=== PATIENT | female | born 1990 | race Caucasian/White ===

== ENCOUNTER 2021-11-26 14:13 | Outpatient (RCR) | payer OTHER, SELFPAY ==
[2021-11-25 08:26] LABS: Basophils Percent Auto 0.3 % (0.2-1.2); Eosinophils Absolute Auto 0.1 K/mm3 (0-0.3); Eosinophils Percent Auto 0.8 % (0-4.4); Hematocrit 35.4 % (37.0-47.0); Hemoglobin 11.9 g/dL (12.0-15.0); Immature Granulocyte Absolute 0.04 K/mm3 (0.00-0.031); Immature Granulocyte Percent A 0.4 % (0-0.5); Lymphocytes Absolute Auto 2.18 K/mm3 (0.9-3.2); Lymphocytes Percent Auto 22.2 % (18.3-44.2); Mean Corpuscular HGB Conc 33.6 g/dl (32-36); Mean Corpuscular Hemoglobin 31.2 pg (26-34); Mean Corpuscular Volume 92.7 fl (80-100); Mean Platelet Volume 9.2 fl (7.4-10.4); Monocytes Absolute Auto 0.8 K/mm3 (0.1-0.6); Monocytes Percent Auto 8.2 % (2.6-8.5); Neutrophils Absolute Auto 6.7 K/mm3 (1.3-6.7); Neutrophils Percent Auto 68.1 % (45.5-73.1); Platelet Count Result 214 k/mm3 (150-375); Red Blood Count 3.82 M/mm3 (4.2-5.4); Red Cell Distribution Width 12.8 % (11.5-14.5); White Blood Count 9.8 K/mm3 (4.5-10.0)
[2021-11-25 08:41] LABS: Glucose 1 Hour PP 50gm Dose 98 mg/dL
[2021-11-26] MEDS: RHO(D) IMMUNE GLOBULIN 300 MCG/2 ML SYRINGE IM (11:15)
== END 2021-11-26 15:00 | disposition home or self-care (01) ==
LOC: ANHLAB 14:13
PROVIDERS: PCP Family Medicine; Visit Provider Student in an Organized Health Care Education/Training Program
DX: Z29.13 Encounter for prophylactic Rho(D) immune globulin (principal)
CPT/HCPCS: 36415; 82947; 85025; 85461; 90384; 96372; J2790

== ENCOUNTER 2022-02-09 09:21 | Inpatient (IN) | payer OTHER, SELFPAY ==
[2022-02-09] VITALS (8 sets, daily range): BP systolic 120–127; BP diastolic 72–91; PULSE 62–89; BMI 29.7
--- NOTE | 2022-02-09 12:38 | PM.IMHP ---
H&P: HPI History of Present Illness Date/Time: 02/09/22 12:38 Chief Complaint: Patient is a 31-year-old LMP 05/05/2021 currently 40 weeks gestation with IKE 02/09/2022. Patient is dated by LMP consistent with ultrasound on 07/07/2021 at 8 weeks gestation. Patient presented to labor and delivery today for surveillance. A limited US was performed and oligohydramnios was noted with MARCELINO of 4 cm. Decision was made to admit patient to labor and delivery for induction of labor. In general, patient doing well. Denies any vaginal bleeding, leakage of fluid, or contractions. Reports good movement. Review of Systems Review of Systems: All systems reviewed & are unremarkable except as noted in HPI and below Constitutional: Constitutional: Reports as per HPI and Reports no additional constitutional complaints Eyes: Eyes: Reports as per HPI and Reports no additional eye complaints ENT: Reports system reviewed and no additional complaints, except as documented and Reports as per HPI Cardiovascular: Cardiovascular: Reports as per HPI and Reports no additional cardiovascular complaints Respiratory: Respiratory: Reports as per HPI and Reports no additional respiratory complaints Gastrointestinal: Gastrointestinal: Reports as per HPI and Reports no additional gastrointestinal complaints Genitourinary: Genitourinary: Reports no additional female genitourinary complaints and Reports as per HPI Musculoskeletal: Musculoskeletal: Reports no additional musculoskeletal complaints and Reports as per HPI Integumentary/Breasts: Skin/Breast: Reports system reviewed and no additional complaints, except as docu and Reports as per HPI Neurologic: Reports system reviewed and no additional complaints, except as documented and Reports as per HPI Psychiatric: Psychiatric: Reports no additional psychiatric complaints and Reports as per HPI Endocrine: Endocrine: Reports no additional endocrine complaints and Reports as per HPI Hematologic/Lymphatic: Hematologic/Lymphatic: Reports no additional hematologic/lymphatic complaints and Reports as per HPI Allergic/Immunologic: Allergic/Immunologic: Reports no additional allergic/immunologic complaints and Reports as per HPI PMF Past Medical History Medical History Amputation of right great toe Cardiac disorder Depression Surgical History Surgical History H/O cardiac radiofrequency ablation [place] teeth removed Family History Family History Grandparent Family history of hypercholesterolemia Hypertension Malignant neoplasm of prostate Father Hypertension Mother Hypertension Other Acute myocardial infarction Family history of cardiac disorder Family history of malignant neoplasm of urinary bladder Family history of pancreatic cancer Social History Social History Smoking status: Never smoker Second hand tobacco smoke exposure: No Alcohol intake: former Alcohol use details: Not since Substance use: never Spiritual care concerns: No Meds Home Medications and Allergies Home Medications Medication Instructions Recorded Confirmed Type pyridoxine (vitamin B6) 25 mg 25 mg PO QHS 07/25/21 02/09/22 History tablet cholecalciferol (vitamin D3) 50 50 mcg PO DAILY 09/26/21 02/09/22 History mcg (2,000 unit) capsule prenat.vits,jackie,nrd-[id number] 1 tablet PO HS 01/13/22 01/26/22 History Allergies Allergy/AdvReac Type Severity Reaction Status Date / Time codeine Allergy Unknown Unknown Verified 02/08/22 12:37 TRAMADOL HCL Allergy Unknown Unknown Uncoded 01/17/22 15:18 Vital Signs Vital Signs - 24 hr 02/09/22 11:52 02/09/22 12:00 02/09/22 12:15 Pulse Rate 66 69 89 Blood Pressure 127/85 125/86 127/91 H Exam Const:
[2022-02-09] MEDS: DINOPROSTONE 10 MG VAG INSERT VAGINAL (12:49)
[2022-02-09 13:10] LABS: Basophils Percent Auto 0.3 % (0.2-1.2); Eosinophils Absolute Auto 0.1 K/mm3 (0-0.3); Eosinophils Percent Auto 0.5 % (0-4.4); Hematocrit 37.6 % (37.0-47.0); Immature Granulocyte Absolute 0.06 K/mm3 (0.00-0.031); Immature Granulocyte Percent A 0.5 % (0-0.5); Lymphocytes Absolute Auto 2.37 K/mm3 (0.9-3.2); Lymphocytes Percent Auto 21.4 % (18.3-44.2); Mean Corpuscular HGB Conc 34.6 g/dl (32-36); Mean Corpuscular Hemoglobin 30.9 pg (26-34); Mean Corpuscular Volume 89.3 fl (80-100); Monocytes Absolute Auto 0.7 K/mm3 (0.1-0.6); Monocytes Percent Auto 6.3 % (2.6-8.5); Neutrophils Absolute Auto 7.8 K/mm3 (1.3-6.7); Platelet Count Result 259 k/mm3 (150-375); Red Blood Count 4.21 M/mm3 (4.2-5.4); Red Cell Distribution Width 13.2 % (11.5-14.5); White Blood Count 11.1 K/mm3 (4.5-10.0)
--- NOTE | 2022-02-09 13:21 | LDADM ---
This patient, Kiara Barber, was admitted to Labor/Delivery/Recovery 108 on 02/09/22 at 09:21. Plans for labor, pain management and were discussed with patient. Patient/family oriented to hospital policies and general routines including ID bracelet, bed and alarms, visiting hours, pain management, procedures, bathroom and other care routines, personal items, smoking policy, room service/diet and guest tray routines, security routines, and visiting hours. Patient/Family are encouraged to report perceived risks to care and to ask questions if they do not understand what they are told or what they should do. See OBIX for further documentation.
[2022-02-09] MEDS: LACTATED RINGERS 1,000 ML 125 ML IV CONT (15:58)
--- NOTE | 2022-02-09 16:43 | WPDHPUPDATE1 ---
History and Physical Update Update Date/Time: 02/09/22 16:43 History and Physical has been reviewed, including an updated exam of the patient. There are NO changes in the patient's condition. Risks, benefits, and alternatives have been discussed and questions answered. Patient agrees to proceed with procedure.
--- NOTE | 2022-02-09 17:41 | WPDANESEPP ---
Anes - Eval Pre Procedure Procedure: Labor epidural Date/Time: 02/09/22 17:41 Surgeon: deric Preop Diagnosis: Abd pain with contractions Pre Op Diagnosis: Induction of Labor Patient Data Age: 31 Gender: F Height: 1.68 m Weight: 83.5 kg Last Vital Signs Pulse 64 02/09/22 14:30 BP 122/75 02/09/22 14:30 Allergies Allergy/AdvReac Type Severity Reaction Status Date / Time codeine Allergy Unknown Unknown Verified 02/08/22 12:37 TRAMADOL HCL Allergy Unknown Unknown Uncoded 01/17/22 15:18 Home Medications Medication Instructions Recorded Confirmed Type pyridoxine (vitamin B6) 25 mg 25 mg PO QHS 07/25/21 02/09/22 History tablet cholecalciferol (vitamin D3) 50 50 mcg PO DAILY 09/26/21 02/09/22 History mcg (2,000 unit) capsule prenat.vits,jackie,vkb-njww-rdort 1 tablet PO HS 01/13/22 01/26/22 History Laboratory Tests 02/09/22 02/09/22 02/09/22 12:52 12:52 12:52 WBC 11.1 K/mm3 H K/mm3 (4.5-10.0) RBC 4.21 M/mm3 M/mm3 (4.2-5.4) Hgb 13.0 g/dL g/dL (12.0-15.0) Hct 37.6 % % (37.0-47.0) MCV 89.3 fl fl (80-100) MCH 30.9 pg pg (26-34) MCHC 34.6 g/dl g/dl (32-36) RDW 13.2 % % (11.5-14.5) Plt Count 259 k/mm3 k/mm3 (150-375) MPV 10.0 fl fl (7.4-10.4) Immature Gran % (Auto) 0.5 % % (0-0.5) Neut % (Auto) 71.0 % % (45.5-73.1) Lymph % (Auto) 21.4 % % (18.3-44.2) [place] % (Auto) 6.3 % % (2.6-8.5) Eos % (Auto) 0.5 % % (0-4.4) Baso % (Auto) 0.3 % % (0.2-1.2) Lymph # (Auto) 2.37 K/mm3 K/mm3 (0.9-3.2) [place] # (Auto) 0.7 K/mm3 H K/mm3 (0.1-0.6) Eos # (Auto) 0.1 K/mm3 K/mm3 (0-0.3) Baso # (Auto) 0.0 K/mm3 K/mm3 (0.0-0.1) Abs Immat Gran (auto) 0.06 K/mm3 H K/mm3 (0.00-0.031) Absolute Neuts (auto) 7.8 K/mm3 H K/mm3 (1.3-6.7) Absolute Nucleated RBC 0.0 K/mm3 K/mm3 (0.0-0.012) Nucleated RBC % 0.0 % % (0.0-0.2) RPR Pending Blood Type A Negative Antibody Screen Positive Antibody Identification Passive Due to RH Imm Glob Antigen Identification Cancelled RICK, IgG Interpret Not Performed RICK, Poly Interpret Negative RICK, Complement Interp Not Performed Patient hx anesthesia problems: none Family hx anesthesia problems: none Results Review: All pre-operative results and documents have been reviewed as part of the pre-operative evaluation. [facility] Past Medical History Medical History (Updated 02/09/22 @ 17:43 by Chong Peña CRNA) Amputation of right great toe Anxiety Cardiac disorder Depression Overweight (BMI 25.0-29.9) and not yet delivered Surgical History Surgical History (Updated 02/09/22 @ 17:43 by Chong Peña CRNA) H/O cardiac radiofrequency ablation History of atrioventricular richardson ablation [place] teeth removed Family History Family History Grandparent Family history of hypercholesterolemia Hypertension Malignant neoplasm of prostate Father Hypertension Mother Hypertension Other Acute myocardial infarction Family history of cardiac disorder Family history of malignant neoplasm of urinary bladder Family history of pancreatic cancer Social History Social History Smoking status: Never smoker Second hand tobacco smoke exposure: No Alcohol intake: former Alcohol use details: Not since Substance use: never Spiritual care concerns: No Exam Day of Procedure 02/09/22 17:41 Patient weight: overweight Airway: Mallampati scale class II Neurological: alert and oriented
[2022-02-10] VITALS (154 sets, daily range): BP systolic 78–149; BP diastolic 52–104; PULSE 52–117; RESP 16–18; TEMP 36.4–37.2; O2SAT 92–100
[2022-02-10] MEDS: OXYTOCIN 30 UNITS/NS 500 ML 30 UNITS/500 ML BAG IV CONT (02:19)
[2022-02-10] MEDS: LACTATED RINGERS 1,000 ML 125 ML IV CONT ×2 (04:40→05:48)
--- NOTE | 2022-02-10 10:01 | P.PNOB_ITS ---
Pain Control Date/time seen: 02/10/22 10:01 Patient doing well. Comfortable after epidural replacement. SVE /-1. AROM performed, clear fluid noted. EFM currently category 1. [place] shows contractions q2-3 mins. Continue pitocin. Continuous EFM and toco. Anticipate .
[2022-02-10] MEDS: OXYTOCIN 30 UNITS/NS 500 ML 30 UNITS/500 ML BAG 125 UNITS IV CONT (13:58)
--- NOTE | 2022-02-10 14:17 | PM.OBPRVD ---
OB - Delivery Note Procedure Delivery date: 02/10/22 Procedure: Patient is a 31-year-old now who presented to labor and delivery on the morning of 02/09/2022 for surveillance at 40 weeks gestation. Oligohydramnios was noted on ultrasound and decision was made to proceed with induction of labor. Patient was admitted to labor and delivery where induction of labor was started with Cervidil. Initial cervical exam was approximately 1 cm dilated. Cervidil remained in place for approximately 12 hours after which it was removed. Pitocin was started for labor augmentation. Patient made progressive cervical change. She became uncomfortable and requested an epidural for pain management which was placed without difficulty. Patient continued to make cervical change. At 9:45 a.m., artificial rupture membranes was performed. Clear amniotic fluid was noted. Cervical exam was approximately 9 cm dilated at that time. Patient progressed to fully dilated at 11:32 a.m. Patient was encouraged to push and found to be pushing well. She was prepped and draped for delivery. At 1:37 p.m., patient delivered infant head atraumatically and without difficulty in FLAVIA presentation. A compound presentation was noted as a hand delivered along side of face. Occiput restituted to maternal right side. With subsequent push, the 's neck, shoulders, and rest of body delivered without difficulty. Terminal meconium was noted. Infant was crying spontaneously. Infant's nose and mouth were suctioned with bulb suction. Infant was placed on maternal abdomen where care was assumed by awaiting nursing staff. Delayed cord clamping was performed for approximately 60 seconds. Cord was clamped and cut. A segment of cord was collected for cord gases. Cord blood was collected. The placenta was delivered spontaneously and intact. Uterine fundus was noted to be firm with massage. Straight catheterization was performed with return of approximately 50 cc of urine. On inspection, a second-degree perineal laceration was noted. Approximately 15 cc of 1% lidocaine was administered for local analgesia. The laceration was repaired with 2-0 and 3-0 Vicryl in the usual fashion. Excellent hemostasis was noted. Patient was cleansed and dried. was a live-born male infant, Apgars 8 and 9, weighing 6 lbs. 14 oz. Both mother and baby doing well at end of delivery. Events: Oligohydramnios Induction method: Per Cervidil Protocol Delivery augmentation: Rupture of Membranes and Pitocin Delivery monitor: External FHT and External Uterine Route of delivery: Laceration Description: Perineal - 2nd Degree Delivery repair: vicryl (2-0 and 3-0 ) Specimen: Yes (cord blood and cord gases) Quantitative Blood Loss (ml): 150 Anesthesia type: Epidural Disposition: Floor Complications: No immediate complications [place] Baby Date of : 02/10/22 Time of : 13:37 Weeks of gestation at delivery: 40 (40.1) Infant gender: Male Weight (pounds): 6 Weight (ounces): 14 presentation: compound ( hand delivered alongside of face) position: Right Occiput Anterior Placenta delivery description: Spontaneous Cord Vessel Description: 3 Vessels and Delayed Cord Clamping (x60s) score one minute: 8 score five minutes: 9 AMG Delivery Billing Delivery Delivery: Delivery Charge
[2022-02-10] MEDS: IBUPROFEN 600 MG TABLET PO (14:57)
[2022-02-10] MEDS: WITCH HAZEL 40 PADS 1 PAD TOPICAL (14:58)
[2022-02-10] MEDS: BENZOCAINE 20% AER SPR (*SP) 56 GM CAN 1 SPRAY TOPICAL (14:58)
--- NOTE | 2022-02-10 16:37 | OBPPTRN ---
Patient transferred to post room # 284 via wheelchair. Support person present. Oriented to unit, room, information board, rooming in, admission packet and security measures. Patient verbalizes understanding.
[2022-02-11] MEDS: IBUPROFEN 600 MG TABLET PO ×4 (00:29→22:32)
[2022-02-11 00:30] VITALS: BP 143/96; PULSE 80; RESP 16; TEMP 36.8; O2SAT 98
[2022-02-11 04:30] VITALS: BP 118/69; PULSE 61; RESP 14; TEMP 36.5; O2SAT 98
[2022-02-11 05:38] LABS: Hematocrit 29.6 % (37.0-47.0); Hemoglobin 10.4 g/dL (12.0-15.0)
[2022-02-11 06:40] VITALS: BP 128/75; PULSE 64; RESP 18; TEMP 36.4
--- NOTE | 2022-02-11 08:21 | PM.OBPNVD ---
OB - PN: Subj Subjective Date/time seen: 02/11/22 08:21 Patient doing well this AM. Mild cramping and pain reasonably controlled with medication. Minimal lochia. Ambulating without difficulty. Voiding well. OB - PN: Obj Data Labs CBC & Chem 7: 02/11/22 05:16 Labs: Laboratory Results - last 24 hr 02/11/22 05:16 Hgb 10.4 L Hct 29.6 L OB - PN A/P Assessment and Plan (1) Normal spontaneous vaginal delivery: Code(s): O80 - Encounter for full-term uncomplicated delivery Status: Acute Assessment and Plan: PPD#1 doing well continue routine care anticipate dc home tomorrow Time Spent With Patient Time: Total time spent is greater than 50% in coordination of care (as documented) at patient's floor/unit and/or counseling patient: Review of Systems Review of Systems: All systems reviewed & are unremarkable except as noted in HPI and below Exam Const: General: cooperative, healthy appearing, comfortable and no acute distress GI: Inspection: non-distended GI Palp: Yes Soft to palpation and No Tenderness to palpation present (GI) Other: fundus firm below umbilicus Extrem: Right lower extremity: no edema Left lower extremity: no edema Other: no calf tenderness
[2022-02-11] MEDS: DOCUSATE SODIUM 100 MG CAPSULE PO ×2 (10:34→16:23)
[2022-02-11] MEDS: MULTIVIT/MIN/PREN/FOL AC/IRON TABLET 1 TAB PO (10:34)
--- NOTE | 2022-02-11 11:17 | WPDANLDPN2 ---
Anes-Prog Note L&D Date/Time: 02/11/22 11:17 Comfortable throughout: labor and delivery Neuraxial method: epidural Epidural/Spinal procedure site: clean & non-tender Neuro status: Neuro function grossly intact. Cardiovascular status: normal Respiratory status: normal Airway patency: baseline Mental status: baseline Post-Op hydration status: normal Vital Signs: Last Vital Signs Temp 36.4 C 02/11/22 06:40 Pulse 64 02/11/22 06:40 Resp 18 02/11/22 06:40 BP 128/75 02/11/22 06:40 Pulse Ox 98 02/11/22 04:30 O2 Del Method Room Air 02/11/22 06:40 Pain score (VAS): 10 I/O: Intake & Output 02/10/22 02/11/22 02/11/22 23:59 07:59 15:59 Intake Total 350 Output Total 185 Balance 165 Post-procedural complaints: none Patient feedback: Patient satisfied with anesthetic care.
[2022-02-11 19:10] VITALS: BP 134/88; PULSE 71; RESP 18; TEMP 36.4
[2022-02-12] MEDS: IBUPROFEN 600 MG TABLET PO ×2 (05:03→13:00)
[2022-02-12] MEDS: MULTIVIT/MIN/PREN/FOL AC/IRON TABLET 1 TAB PO (07:19)
[2022-02-12 07:45] VITALS: BP 121/68; PULSE 59; RESP 16; TEMP 36.6; O2SAT 99
[2022-02-12 08:00] LABS: Rapid Plasma Reagin Non-Reactive (NonReactive)
--- NOTE | 2022-02-12 09:13 | PM.OBPNVD ---
OB - PN: Subj Subjective Date/time seen: 02/12/22 09:13 Patient doing well. Minimal cramping/pain well controlled with medication. Minimal lochia. Ambulating without difficulty. Voiding well. OB - PN: Obj Data Labs CBC & Chem 7: 02/11/22 05:16 Labs: Laboratory Results - last 24 hr 02/09/22 12:52 RPR Non-reactive OB - PN A/P Assessment and Plan (1) Normal spontaneous vaginal delivery: Code(s): O80 - Encounter for full-term uncomplicated delivery Status: Acute Assessment and Plan: PPD#2 doing well continue routine care dc home in stable condition emergency precautions reviewed f/u in office in 4-6 weeks for visit Time Spent With Patient Time: Total time spent is greater than 50% in coordination of care (as documented) at patient's floor/unit and/or counseling patient: Review of Systems Review of Systems: All systems reviewed & are unremarkable except as noted in HPI and below Exam Const: General: cooperative, healthy appearing, comfortable and no acute distress GI: Inspection: non-distended GI Palp: Yes Soft to palpation and No Tenderness to palpation present (GI) Other: fundus firm below umbilicus Extrem: Right lower extremity: no edema Left lower extremity: no edema Other: no calf tenderness
--- NOTE | 2022-02-12 09:16 | PM.OBDSVD ---
DS: Admitting Diagnosis Discharge Date 02/12/22 Admitting Diagnosis IUP at 40w gestation Oligohydramnios OB - DS: Summary OB Procedures : None OB Procedures Intrapartum: Spontaneous Vag Delivery OB Procedures: : None Time Spent with Patient Time attestation: Total time spent providing and/or coordinating discharge services: DS: Data Data Completed and Pending Pending studies at discharge: Pending at discharge 02/10/22 13:40 Surgical [PTH] Routine Labs on day of discharge: Labs from last 24 hours 02/09/22 12:52 RPR Non-reactive Discharge Plan Discharge Attending physician on discharge: Ashley Obrien Discharging Clinician: Ashley Obrien Anticipated Discharge Date/Time: 02/12/22 09:16 Patient Disposition: Home, Self-Care Activity: as tolerated and pelvic rest Diet: regular Discharge Instructions: Call office ([phone]) to schedule a visit in 4-6 weeks. You may take Ibuprofen 600mg every 6 hours as needed for pain. Pain medication may make you constipated. It may be helpful to take an [id number] stool softener, such as Colace and/or Senokot, along with the pain medication to help lessen constipation. Call office or go to ED for pain not controlled with medication, headache, chest pain, shortness of breath, fever, chills, persistent nausea or vomiting, severe abdominal pain, heavy vaginal bleeding >2 pads/hour, foul vaginal discharge or odor, or problems with your breasts. Patient Instructions: Antibiotic Form Stand Alone Forms: General Discharge Information Follow-up/Referrals: Ashley Obrien MD [Physician] - Discharge Medications: Continued #2 Tablet 1 tablet PO HS Discontinued pyridoxine (vitamin B6) 25 mg tablet 25 mg PO QHS cholecalciferol (vitamin D3) 50 mcg (2,000 unit) capsule 50 mcg PO DAILY Date of admission: 02/09/22 09:21 Primary Care Provider: UNKNOWN,DOCTOR Admitting Provider: Ashley Obrien Attending physician on admission: Ashley Obrien Condition: Stable
--- NOTE | 2022-02-12 10:13 | PC.NURSE ---
[id number] Introductions were made to the father of the baby since mother is in the shower. Resources reviewed for inpatient and outpatient services using a resource guide and mom/baby guide. Father of baby voiced understanding of information and will call if there is a request for assistance. Primary RN is present in the room.
--- NOTE | 2022-02-12 14:33 | PC.NURSE ---
Addendum entered by Sanna Drake RN 02/12/22 14:47: During the assessment between the time of there was a discussion regarding positioning, latch and how that can make a difference in improving the latch with her infant's recessed chin. Original Note: Consulted with patient to assess needs related to . Mother led conversation with her experience with feeding baby so far. Mother works well with her with encouragement. Infant is sleepy after his circumcision and medication. Reviewed working with infant with massage touch, breast, nipples and how to protect the nipples with an optimal deep latch, good positioning, hand expression, and good hand washing. Encouraged understanding the benefits of skin to skin, responding to feeding cues, frequencies of feeding 8-12 times in 24 hours (approximately 2-3 hours), supply/demand, milk production, intake/output feeding sheet and signs of adequate intake encouraging swallowing at the breast. Reviewed positioning and alignment, supporting breast, off-centered (asymmetrical latch) and leading with the chin with big open wide gape, then infant went back to sleep. Mother demonstrated understanding of how to massage touch, talking, changing positioning, and stimulating to wake to breastfeed. Infant is sleepy and reluctant with no sustainable efforts at this time. Mother has been pumping as needed. We discussed the risk/benefits/use, and care of the nipple shield and the electric pump. Resources used to facilitate learning were used from the visual handout, tool, mom and baby guide. Mother voiced understanding of the education shared, calling for assistance if the does not latch or if there is discomfort with . Reported to the primary RN. [id number] Breast pump provided prior to shift due to mother being given a nipple shield to use for . Instructions given on cleaning, care, usage, that there should be no pain, pumping schedule for milk production, collection, and storage of human milk. Patient was assessed for correct placement, flange size, to pump for comfort and nipple stretching/stimulation for adequate milk production every 3 hours (8 times in 24 hours). Mother voiced understanding of the education shared along with mom and baby guide for additional resource information. Encouraged mother to stay through a feeding to work with infant on latching optimally before going home. Mother states she feels confident to go home with her without the assistance of support at this time to visualize if infant can latch effectively without the nipple shield to her everted nipples. Mother verbalizes understanding of pumping if doesn't latch, states she learned a lot with the earlier education and attempt, and has a follow up appointment tomorrow. Patient state she will ask for help tomorrow if needed. Primary RN is present for the discussion.
[2022-02-13 09:48] VITALS: BP 122/76; PULSE 73; RESP 16; TEMP 36.6; O2SAT 98
== END 2022-02-12 13:12 | disposition home or self-care (01) | DRG 807 ==
LOC: ANHLDR 11:37 → ANHOB2 02-10 16:49
PROVIDERS: Admitting Provider Student in an Organized Health Care Education/Training Program; Visit Provider Student in an Organized Health Care Education/Training Program
DX: O41.03X0 Oligohydramnios, third trimester, not applicable or unspecified (principal); Z37.0 Single live birth; O32.6XX0 Maternal care for compound presentation, not applicable or unspecified; O70.1 Second degree perineal laceration during delivery; O76 Abnormality in fetal heart rate and rhythm complicating labor and delivery; Z3A.40 40 weeks gestation of pregnancy
CPT/HCPCS: 36415; 59025; 76815; 85014; 85018; 85025; 86592; 86850; 86880; 86900; 86901; 86902; 88307; A9270; J2590; J2795; J7120

== ENCOUNTER 2022-02-09 09:21 | Outpatient (RCR) | payer OTHER, SELFPAY ==
--- NOTE | ~2022-02-09 | US_ITS ---
EXAMINATION: US OB limited DATE: 02/09/2022 10:31 INDICATION: Amniotic fluid index assessment, third trimester, post dates TECHNIQUE: Real-time ultrasound of the pelvis was performed. The interpreting radiologist was not pre sent for the study. COMPARISON: None. FINDINGS: There is a single living fetus in vertex presentation. The placenta is anterior. card iac activity and movement are noted. heart rate is 139 beats per minute (bpm). The amniot ic fluid index is 4.4 cm which is low (normal range: 7.1 cm to 21.4 cm). IMPRESSION: 1. Single living fetus in vertex presentation. 2. Oligohydramnios. Reviewed, dictated and finalized at location A.
[2022-02-09 10:12] VITALS: BP 122/84; PULSE 84
== END 2022-03-21 10:08 | disposition home or self-care (01) ==
LOC: ANHOBOP 09:21
PROVIDERS: Visit Provider Student in an Organized Health Care Education/Training Program
DX: O48.0 Post-term pregnancy (principal); Z3A.40 40 weeks gestation of pregnancy
CPT/HCPCS: 59025; 76815

== ENCOUNTER 2022-02-13 10:26 | Outpatient (CLI) | payer OTHER, SELFPAY ==
--- NOTE | 2022-02-13 11:19 | PC.NURSE ---
In- 1026 Out- 1106 Reason for visit: Latch issues History: Patient medical history includes Amputation of right great toe, cardiac disorder, and depression. Induction of labor with Cervidil, Pitocin, then AROM was planned at 40 weeks gestation after US resulted with Oligohydramnios. Epidural delivery of male on 02/10/22 with QBL of 150, FLAVIA with hand along the side of the 's face, and delayed cord clamping per delivery note. Prior to meeting RN patient had been given a nipple shield and a pump. RN did not have the opportunity assess a latch with or without the nipple shield but mother desires to go home and is confident to practice latching infant without the nipple shield, pump and feed her infant if needed. Infant History: EGA of 40 weeks. RN met infant on 02/12 after circumcision and pain medication. RN visualized a sleepy and reluctant infant with no latch assessment in the hospital before mother went home. Feedings were charted as , nipple shield being used, and syringe feeding pumped human milk. Mother went home confident to be able to feed her . Observations: Mother attempts to latch infant and the latch is shallow at times. Mother demonstrates good positioning with 's body close to hers with ear, shoulder, and hip aligned. Infant demonstrated big, open, wide gape. With a bit of hesitation infant begins to close his mouth as mother brings infant to the breast. RN encouraged mother of her abilities to bring infant quickly to the breast to achieve a mouthful of breast for her son to have an optimal latch. At times, attempts to pull back and latch shallow. Reviewed detaching if the latch is shallow and patiently wait for the optimal open. Infant latched to the right breast for 13 minutes, then the left breast for 10 using the cross cradle positioning. Nipple was not misshaped and mother denied pain. Mother encouraged to latch infant deeply each feeding and educated on how to watch and listen for good swallowing at the breast. Mother verbalized understanding of the rocking motion and deep swallows. Suck/ swallow ratios are 1:1 and 2:1. Mother voiced confidence to work with her at home, when, and how to reach out for assistance if she has any question, concerns, or when to call ICP. weight: 02/10 1337 3130 g Lowest weight: 02/11 2340 2958 g Last weight: 02/13 2935 g Pre-feed weight: 2935 Post-feed weight: 2950 Plan of Care: Mother is confident to breastfeed her and states her breast are filling. Day 3 post delivery is today at 1337. Reviewed how to prevent and the treatment of engorgement. Follow up plans: There is a plan to follow up at Dr. Holly's office this week. Mother will contact RN or ICP if there are any concerns or questions.
== END 2022-02-13 10:27 | disposition home or self-care (01) ==
LOC: ANHOBOP 10:26
PROVIDERS: Visit Provider Pediatrics
DX: Z39.1 Encounter for care and examination of lactating mother (principal)
CPT/HCPCS: 99211; G0463

== ENCOUNTER 2024-02-27 15:01 | Outpatient (CLI) | payer OTHER, SELFPAY ==
--- NOTE | ~2024-02-27 | US_ITS ---
EXAMINATION: US OB <= 14 weeks fetus DATE: 02/27/2024 15:18 INDICATION: Amenorrhea TECHNIQUE: Real-time pelvic ultrasound utilizing transabdominal probe was performed. The gigi potts radiologist was not present for the study. COMPARISON: None. FINDINGS: The uterus measures 10.9 x 7.4 x 5.3 cm. There is an intrauterine gestational sac. A yolk sac and fe selena pole are identified. The crown rump length measures 2.5 cm, which correlates with an estimated ge stational age of 9 weeks and 1 days. heart motion is identified measuring 176 beats per minute (bpm) by M-mode Doppler. The placenta appears to be developing posteriorly. The bilateral ovaries are not visualized. There is no free fluid in the pelvis. IMPRESSION: 1. Single living fetus with heart rate of 176 bpm. 2. Gestational age by ultrasound of 9 weeks 1 day(s) +/- 6 day(s) with ultrasound estimated date of delivery (IKE) of 09/30/2024. Reviewed, dictated and finalized at location A. IMPRESSION: 1. Single living fetus with heart rate of 176 bpm. 2. Gestational age by ultrasound of 9 weeks 1 day(s) +/- 6 day(s) with ultraso und estimated date of delivery (IKE) of 09/30/2024.
== END 2024-02-27 15:02 | disposition home or self-care (01) ==
LOC: GOSHIMG 15:03
PROVIDERS: PCP Nurse Practitioner Obstetrics & Gynecology; Visit Provider Nurse Practitioner Obstetrics & Gynecology
DX: N91.2 Amenorrhea, unspecified (principal); Z3A.09 9 weeks gestation of pregnancy
CPT/HCPCS: 76801

== ENCOUNTER 2024-06-18 11:23 | Outpatient (CLI) | payer OTHER, SELFPAY ==
[2024-06-18 12:44] LABS: Basophils Percent Auto 0.4 % (0.2-1.2); Eosinophils Absolute Auto 0.1 K/mm3 (0-0.3); Eosinophils Percent Auto 0.8 % (0-4.4); Hematocrit 33.8 % (37.0-47.0); Hemoglobin 11.5 g/dL (12.0-15.0); Immature Granulocyte Absolute 0.04 K/mm3 (0.00-0.031); Immature Granulocyte Percent A 0.5 % (0-0.5); Lymphocytes Absolute Auto 1.63 K/mm3 (0.9-3.2); Lymphocytes Percent Auto 21.2 % (18.3-44.2); Mean Corpuscular Hemoglobin 31.1 pg (26-34); Mean Corpuscular Volume 91.4 fl (80-100); Mean Platelet Volume 9.1 fl (7.4-10.4); Monocytes Absolute Auto 0.6 K/mm3 (0.1-0.6); Monocytes Percent Auto 7.9 % (2.6-8.5); Neutrophils Absolute Auto 5.3 K/mm3 (1.3-6.7); Neutrophils Percent Auto 69.2 % (45.5-73.1); Platelet Count Result 214 k/mm3 (150-375); Red Cell Distribution Width 13.2 % (11.5-14.5); White Blood Count 7.7 K/mm3 (4.5-10.0)
[2024-06-18 12:54] LABS: Glucose 1 Hour PP 50gm Dose 82 mg/dL
== END 2024-06-18 11:24 | disposition home or self-care (01) ==
LOC: ANHLAB 11:24
PROVIDERS: PCP Nurse Practitioner Obstetrics & Gynecology; Visit Provider Nurse Practitioner Obstetrics & Gynecology
DX: Z34.90 Encounter for supervision of normal pregnancy, unspecified, unspecified trimester (principal); Z3A.00 Weeks of gestation of pregnancy not specified
CPT/HCPCS: 36415; 82947; 85025

== ENCOUNTER 2024-07-09 08:30 | Outpatient (RCR) | payer OTHER, SELFPAY ==
[2024-07-10] MEDS: RHO(D) IMMUNE GLOBULIN 300 MCG/2 ML SYRINGE IM (16:45)
--- OUTSIDE RECORDS SUMMARY | 2024-07-16 01:41 | XMS_ITS | Clinical Summary ---
Author Organization [facility] Address [address] [place] [address] Phone Care Team Providers Care Family Resource Management Professor Name Role Phone Unavailable Primary Care Provider Unavailabl e Encounters Date Type Department Care Team Description 07/14/2024 External Device Data STL ABSTRACTION Provider, Abstract 07/08/2024 External Device Data STL ABSTRACTION Provider, Abstract 05/19/2024 External Device Data STL ABSTRACTION Provider, Abstract 05/18/2024 7:30 AM MANNEQUIN MAKER - 05/18/2024 11:59 PM MANNEQUIN MAKER Hospital Encounter [facility] [address] [place] [address] Pepe Lino MD Discharge Disposition: Home or Self Care from Last 3 Months Social History Tobacco Use Types Packs/Day Years Used Date Smoking Tobacco: Never Assessed Comments Unknown Sex and Gender Information Value Date Recorded Sex Assigned at Not on file Legal Sex Female 9:08 AM MANNEQUIN MAKER Gender Identity Not on file Sexual Orientation Not on file Plan of Treatment Upcoming Encounters Date Type Department Care Team (Late st Contact Info) Description 08/03/2024 8:15 AM MANNEQUIN MAKER Appointment [facility] [address] [place] [address] Pepe Lino MD [address] [facility] [address] [place] [id number] Health Maintenance Due Date Last Done Comments HEPATITIS B VACCINES (1 of 3 - 19+ 3-dose series) 2008 CERVICAL CANCER SCREENING 2019 INFLUENZA VACCINE (#1) 2024 2, 07/28/2021 Preventative Visit- Commercial 06/24/2024 DTAP/TDAP/TD VACCINES (2 - T d or Tdap) 01/10/2032 01/09/2022 HPV VACCINES Aged Out No longer pia marcos based on patient's age to complete this topic Procedures Procedure Name Priority Date/Time Associated Diagnosis Comments US OB DETAIL SINGLE GEST Routine 05/18/2024 8:17 AM MANNEQUIN MAKER screening for malformation using ultrasonics from Last 3 Months Results * US OB DETAIL SINGLE GEST (05/18/2024 8:17 AM MANNEQUIN MAKER) Anatomical Region Laterality Modality Pelvis Ultrasound 05/18/2024 7:49 AM MANNEQUIN MAKER Narrative 05/18/2024 8:23 AM MANNEQUIN MAKER STL COMP ----- Pat. Name: KIARA BARBER Study Date: 05/18/2024 7:49am Pat. NO: [id number] Referring ??MD: PEPE LINO MD Site: [place] Naturopath: Kathrin Harvey RDMS : 1990 Age: 34 ----- INDICATION ----- Advanced Maternal Age (AMA), Multigravida ?patient reports low risk NIPT Anatomy Survey CODING ----- Diagnoses ? Z3A.21: Weeks of gestation ?Z36.3: Encounter for screening for malformations ?O09.522: Supervision of elderly multigravida Procedures ?47934: Ultrasound, uterus, real time with image documentation, and maternal evaluation ?plus detailed anatomic examination, transabdominal approach HISTORY ----- OB History ? 2. Para 1 ?T1L1 MATERNAL ASSESSMENT ----- Physical Exam ? Weight 65 kg. BMI 23.08 kg/m?? METHOD ----- Transabdominal ultrasound examination ----- Stock . Number of fetuses: 1 DATING ----- Method of dating: based on the LMP LMP on: 12/23/2023 GA by LMP 21 w + 0 d IKE by LMP: 09/28/2024 Ultrasound examination on: 05/18/2024 GA by U/S based upon: AC, BPD, EFW, Femur, HC GA by U/S 20 w + 4 d IKE by U/S: 10/01/2024 Assigned: based on the LMP, selected on 05/18/2024 Assigned GA 21 w + 0 d Assigned IKE: 09/28/2024 BIOMETRY ----- BPD ?46.8 ? mm ? 20w 1d ? 17% ?Hadlock OFD ?64.6 ? mm ? 21w 6d ? 80% ?Chela HC ? 177.8 ?mm ? 20w 2d ? 13% ?Hadlock Cerebellum tr ?21.5 ? mm ? 21w 0d ? 42% ?Ch Nuchal fold ?4.4 ?mm AC ? 165.4 ?mm ? 21w 4d ? 63% ?Hadlock Femur ?33.1 ? mm ? 20w 2d ? 20% ?Hadlock Humerus ?32.4 ? mm ? 20w 6d ? 40% ?Chela HC / AC ?1.07 ?7% ? Nicolaides Weight Calculation: EFW ?386 ? g ?20w 6d ?40% ?Hadlock EFW (lb,oz) ?0 lb 14 ? oz EFW by ?Hadlock ([id number]) Head / Face / Neck Biometry: Keyboarding Teacher ? 5.1 ?mm CM ? 3.6 ?mm ? 7% ?Nicolaides Outer IOD ? 31.7 ?mm ? 20w 3d ?14% ?Chela Extremities / Bony Struc Biometry: FL / BPD ? 0.71 ?35% ?Hadlock FL / HC ?0.19 ?42% ?Hadlock FL / AC ?0.20 ?4% ?Hadlock GENERAL EVALUATION ----- Cardiac activity present. FHR 155 bpm. movements: present. Presentation: breech Placenta: Placental site: posterior Umbilical cord: Cord vessels: 3 vessel cord. Insertion site: placental insertion: normal Amniotic fluid: Amount of AF: normal amount. MVP 4.1 cm ANATOMY ----- The following structures appear normal: Head / Neck ? Cranium. Lateral ventricles. Choroid plexus. Midline falx. Cavum septi pellucidi. Cerebellum. Cisterna ?magna. Thalami. ?Nuchal fold. Face ?Lips. Profile. Nose. Palate. Orbits. Heart / Thorax ?4-chamber view. RVOT view. LVOT view. 3-vessel view. 8-mtunis-phqjopa view. Situs. Aortic arch view. ?Ductal arch view. Superior vena cava. Inferior vena cava. High short axis view. Cardiac rhythm. ?Diaphragm. Abdomen ? Abdominal wall. Stomach. Kidneys. Bladder. Spine ? Cervical spine. Thoracic spine. Lumbar spine. Sacral spine. Extremities / ? Arms. Right hand. Left hand. Legs. Right foot. Left foot. Skeleton MATERNAL STRUCTURES ----- Cervix ?Visualized ?Approach - Transabdominal: Cervical length 42.8 mm Right Ovary ? Suboptimal Left Ovary ?Normal ?Size 26 mm x 16 mm x 12 mm. Vol 2.6 cm?? GROWTH OVERVIEW ----- Exam date ? GA ?BPD (mm) ? HC (mm) ?AC (mm) ? FL (mm) ?HL (mm) ?EFW (g) 05/18/2024 ?21w 0d ?46.8 ?17% ?177.8 ? 13% ?165.4 ?63% ?33.1 ?20% ?32.4 ?40% ?386 ? 40% COMMENT ----- Patient's name and date of were verified by the thread tool grinder set up operator before the exam IMPRESSION ----- Summary of Findings: A detailed anatomic survey was performed. Ultrasound was used to both evaluate structural abnormalities and to evaluate more subtle features of the face and extremities that could indicate aneuploidy. Detailed anatomic survey was performed due to AMA. 1. Single living fetus with gestational age of 21w 0d, (IKE = 09/28/2024), based on the reported clinical dates. 2. Detailed anatomic survey is complete. No major structural abnormalities are identified. 3. The amniotic fluid volume is wnl with maximum vertical pocket of 4.1 cm. 4. Estimated weight is 386 g (40%ile). 5. Placenta is posterior. 6. Cervical length measurement is 42.8 mm. The presence of a normal anatomic survey does not rule out genetic, chromosomal or structural anomalies. Recommendation: - Interval growth and anatomy at 32-34 weeks. Thank you for inviting us to participate in your patient's care. Procedure Note Kierra Bowling MD - 05/18/2024 STL COMP ----- Jenny. Name:Ebony BARBER Date:05/18/2024 7:49am Pat. NO: [id number] MD:PEPE LINO MD [facility]:Kathrin Harvey RDMS :1990Age:34 ----- INDICATION ----- Advanced Maternal Age (AMA), Multigravida [facility] CODING ----- Diagnoses Z3A.21: Weeks of gestation Z36.3: Encounter for screening formalformations O09.522: Supervision of elderly multigravida Procedures 48750: Ultrasound, uterus, real time withimage documentation, and maternal evaluation plus detailed anatomic examination,transabdominal approach HISTORY ----- OB History 2. Para 1 T1L1 MATERNAL ASSESSMENT ----- Physical Exam Weight 65 kg. BMI 23.08 kg/m?? METHOD ----- Transabdominal ultrasound examination ----- Stock . Number of fetuses: 1 DATING ----- Method of dating:based on the LMP LMP on:12/23/2023 GA by LMP21 w + 0 d IKE by LMP:09/28/2024 Ultrasound examination on:05/18/2024 GA by U/S based upon:AC, BPD, EFW, Femur, HC GA by U/S20 w + 4 d IKE by U/S:10/01/2024 Assigned:based on the LMP, selected on 05/18/2024 Assigned GA21 w + 0 d Assigned IKE:09/28/2024 BIOMETRY ----- BPD 46.8 mm 20w 1d17% Hadlock OFD 64.6 mm 21w 6d80% Chela HC 177.8 mm 20w 2d13% Hadlock Cerebellum tr 21.5 mm 21w 0d42% Ch Nuchal fold 4.4 mm AC 165.4 mm 21w 4d63% Hadlock Femur 33.1 mm 20w 2d20% Hadlock Humerus 32.4 mm 20w 6d40% Chela HC / AC 1.07 7%Nicolaides Weight Calculation: EFW 386 g 20w 6d 40%Hadlock EFW (lb,oz) 0 lb 14 oz EFW by Hadlock ([id number]-PH-FY-FL) Head / Face / Neck Biometry: Keyboarding Teacher 5.1 mm CM 3.6 mm 7%Nicolaides Outer IOD 31.7 mm 20w 3d 14%Chela Extremities / Bony Struc Biometry: FL / BPD 0.71 35%Hadlock FL / HC 0.19 42%Hadlock FL / AC 0.20 4%Hadlock GENERAL EVALUATION ----- Cardiac activity present. FHR 155 bpm. movements: present.Presentation: breech Placenta: Placental site: posterior Umbilical cord: Cord vessels: 3 vessel cord. Insertion site: placentalinsertion: normal Amniotic fluid: Amount of AF: normal amount. MVP 4.1 cm ANATOMY ----- The following structures appear normal: Head / Neck Cranium. Lateral ventricles. Choroid plexus.Midline falx. Cavum septi pellucidi. Cerebellum. Cisterna magna. Thalami. Nuchal fold. Face Lips. Profile. Nose. Palate. Orbits. Heart / Thorax 4-chamber view. RVOT view. LVOT view. 3-vesselview. 6-bwdkhz-ahnwoqo view. Situs. Aortic arch view. Ductal arch view. Superior vena cava. Inferiorvena cava. High short axis view. Cardiac rhythm. Diaphragm. Abdomen Abdominal wall. Stomach. Kidneys. Bladder. Spine Cervical spine. Thoracic spine. Lumbar spine.Sacral spine. Extremities / Arms. Right hand. Left hand. Legs. Right foot.Left foot. Skeleton MATERNAL STRUCTURES ----- Cervix Visualized Approach - Transabdominal: Cervical length 42.8mm Right Ovary Suboptimal Left Ovary Normal Size 26 mm x 16 mm x 12 mm. Vol 2.6 cm?? GROWTH OVERVIEW ----- Exam date GA BPD (mm) HC (mm) AC (mm) FL(mm) HL (mm) EFW (g) 05/18/2024 21w 0d 46.8 17% 177.8 13% 165.4 63%33.1 20% 32.4 40% 386 40% COMMENT ----- Patient's name and date of were verified by the thread tool grinder set up operator beforethe exam IMPRESSION ----- Summary of Findings: A detailed anatomic survey was performed.Ultrasound was used to both evaluate structural abnormalities and to evaluate more subtle features of the face andextremities that could indicate aneuploidy. Detailed anatomic survey was performed due to AMA. 1. Single living fetus with gestational age of 21w 0d, (IKE = 09/28/2024),based on the reported clinical dates. 2. Detailed anatomic survey is complete. No major structuralabnormalities are identified. 3. The amniotic fluid volume is wnl with maximum vertical pocket of 4.1cm. 4. Estimated weight is 386 g (40%ile). 5. Placenta is posterior. 6. Cervical length measurement is 42.8 mm. The presence of a normal anatomic survey does not rule out genetic,chromosomal or structural anomalies. Recommendation: - Interval growth and anatomy at 32-34 weeks. Thank you for inviting us to participate in your patient's care. us Pepe Lino MD ORDERABLES Final Result from Last 3 Months Insurance [place] [facility] [id number] Member Subscriber Plan / Payer (Ef fective 2024-Present) Name:KIARA BARBER Relation to Subscriber:Spouse Name:LA NENA BARBER Date of :1988 Address: [address] [place] [address] Payer ID:[id number] (NAIC) Type:HMO Address: [facility] [id number] [place] [id number]
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
--- OUTSIDE RECORDS SUMMARY | 2024-07-16 01:41 | XMS_ITS | Encounter Summary ---
Author Organization [facility] Address [address] [place] [address] Care Team Providers Care Stamp Pad Finisher Name Role Phone Unavailable Primary Care Provider Unavailabl e Encounter Details Date Type Department Care Team (Late st Contact Info) Description 07/08/2024 External Device Data STL ABSTRACTION Provider, Abstract NO ADDRESS ON FILE Social History Tobacco Use Types Packs/Day Years Used Date Smoking Tobacco: Never Assessed Comments Unknown Sex and Gender Information Value Date Recorded Sex Assigned at Not on file Legal Sex Female 9:08 AM GAS PROVER Gender Identity Not on file Sexual Orientation Not on file documented as of this encounter Plan of Treatment Upcoming Encounters Date Type Department Care Team (Late st Contact Info) Description 08/03/2024 8:15 AM GAS PROVER Appointment [facility] Maternal and [facility] [address] [place] [address] Pepe Oates MD [address] [facility] [address] [facility] [address] [place] [address] documented as of this encounter Visit Diagnoses Not on filedocumented in this encounter
--- OUTSIDE RECORDS SUMMARY | 2024-07-16 01:41 | XMS_ITS | Referral Summary ---
Author Organization [facility] Address [address] [place] [address] Care Team Providers Care Sole Dyer Name Role Phone Ashley Obrien MD Primary Care Provider [phone] Kandice Valencia Unavailable [phone] Allergies Active Allergy Reactions Criticality Noted Date [...] Active Active Problems No known active problems Social History Tobacco Use Types Packs/Day Years [...] on file Sexual Orientation Not on file Last Filed Vital Signs Vital Sign Reading Time Taken Comments Blood Pressure 127/83 06/26/2022 3:29 PM PHARMACY HELPER Pulse 94 06/26/2022 3:29 PM PHARMACY HELPER Temperature 37.8 ??C (100 ??F) 05/18/2022 5:21 PM PHARMACY HELPER Respiratory Rate 16 05/18/2022 5:21 PM PHARMACY HELPER Oxygen Saturation 95% 05/18/2022 5:21 PM PHARMACY HELPER Inhaled Oxygen Concentration - - Weight 66.3 kg (146 lb 3.2 oz) 06/26/2022 3:29 P M PHARMACY HELPER Height 167.6 cm (5' 6 ) 06/26/2022 3:29 PM PHARMACY HELPER Body Mass Index 23.6 06/26/2022 3:29 PM PHARMACY HELPER Plan of Treatment Not on file Insurance [facility] [place] [address] [facility] PL[facility] Care Teams Sole Dyer Relationship Specialty Start Date End Date Ashley Obrien MD [address] [place], [place] [id number] PCP - General Obstetrics and Gynecology 03/14/22 Kandice Valencia PA [address] [place] [phone] [place] [address] Colon and Rectal Surgery 06/26/22
== END 2024-10-07 23:59 | disposition home or self-care (01) ==
LOC: ANHLAB 08:30
PROVIDERS: PCP Nurse Practitioner Obstetrics & Gynecology; Visit Provider Nurse Practitioner Obstetrics & Gynecology
DX: Z34.90 Encounter for supervision of normal pregnancy, unspecified, unspecified trimester (principal)
CPT/HCPCS: 36415; 85461; 86850; 86900; 86901; 90384; 96372; J2790

== ENCOUNTER 2024-08-04 09:20 | Outpatient (CLI) | payer OTHER, SELFPAY ==
--- OUTSIDE RECORDS SUMMARY | 2024-08-04 10:08 | XMS_ITS | Encounter Summary ---
Author Organization [facility] Address [address] [place] [address] Care Team Providers Care Psychiatric Rn Name Role Phone Unavailable Primary Care Provider Unavailabl e Reason for Referral * Radiology Services (Routine) - Closed Specialty Diagnoses / Procedures Referred By Mackenzie t Referred To Contact Diagnoses Encounter for ultrasound to assess growth Procedures US OB FOLLOW UP PER FETUS Pepe Wellington MD [address] [address] Phone: tel: fax: Referral ID Status Reason Start Date Expiration Date Visits Re quested Visits Authorized [id number] Closed 07/10/2024 08/10/2025 1 1 L CHECKER Reason for Visit * Radiology Services (Routine) - Closed Specialty Diagnoses / Procedures Referred By Mackenzie brnik Referred To Contact Diagnoses Encounter for ultrasound to assess growth Procedures US OB FOLLOW UP PER FETUS Pepe Wellington MD [address] [address] Phone: tel: fax: Referral ID Status Reason Start Date Expiration Date Visits Re quested Visits Authorized [id number] Closed 07/10/2024 08/10/2025 1 1 Encounter Details Date Type Department Care Team (Latest Contact Info) Description 08/03/2024 8:14 AM STEEL CHECKER - 08/03/2024 11:59 PM STEEL CHECKER Hospital Encounter [facility] Maternal and Health [facility] [address] [place] [address] Pepe Lino MD [address] [address] Arrived Discharge Disposition: Home or Self Care Social History Tobacco Use Types Packs/Day Years Used Date Smoking Tobacco: Never Assessed Comments Unknown Sex and Gender Information Value Date Recorded Sex Assigned at Not on file Legal Sex Female 9:08 AM STEEL CHECKER Gender Identity Not on file Sexual Orientation Not on file documented as of this encounter Plan of Treatment Not on file documented as of this encounter Procedures Procedure Name Priority Date/Time Associated Diagnosis Comments US OB FOLLOW UP PER FETUS Routine 08/03/2024 8:35 AM STEEL CHECKER Encounter for ultrasound to assess growth documented in this encounter Results * US OB FOLLOW UP PER FETUS (08/03/2024 8:35 AM STEEL CHECKER) Anatomical Region Laterality Modality Pelvis Ultrasound 08/03/2024 8:15 AM STEEL CHECKER Narrative 08/03/2024 8:48 AM STEEL CHECKER STL FOLLOW UP ----- Pat. Name: KIARA BARBER Study Date: 08/03/2024 8:15am Pat. NO: [id number] Referring MD: PEPE LINO MD Site: [place] Api Architect: Malaika Monae RDMS : 1990 Age: 34 ----- INDICATION ----- Advanced Maternal Age (AMA), Multigravida Screening Follow-Up CODING ----- Diagnoses Z3A.32: Weeks of gestation O09.523: Supervision of elderly multigravida Z36.2: Encounter for other screening follow-up Procedures 28310: Ultrasound, uterus, real time with image documentation, follow up, transabdominal approach per fetus HISTORY ----- OB History 2. Para 1 T1L1 METHOD ----- Transabdominal ultrasound examination ----- Stock . Number of fetuses: 1 DATING ----- LMP on: 12/23/2023 GA by LMP 32 w + 0 d IKE by LMP: 09/28/2024 GA by prior assessment 32 w + 0 d IKE by prior assessment: 09/28/2024 Ultrasound examination on: 08/03/2024 GA by U/S based upon: AC, BPD, EFW, Femur, HC GA by U/S 32 w + 4 d IKE by U/S: 09/24/2024 Method of dating: Restore dating from previous exam Assigned: based on the LMP, selected on 05/18/2024 Assigned GA 32 w + 0 d Assigned IKE: 09/28/2024 BIOMETRY ----- BPD 79.6 mm 32w 0d 39% Hadlock OFD 106.6 mm 35w 1d 96% Chela HC 299.2 mm 33w 1d 43% Hadlock AC 298.5 mm 33w 6d 92% Hadlock Femur 59.8 mm 31w 1d 16% Hadlock HC / AC 1.00 17% Nicolaides Weight Calculation: EFW 2,057 g 32w 3d 66% Hadlock EFW (lb,oz) 4 lb 9 oz EFW by Hadlock ([id number]) Head / Face / Neck Biometry: Sewing Line Baler 6.1 mm Extremities / Bony Struc Biometry: FL / BPD 0.75 FL / HC 0.20 FL / AC 0.20 GENERAL EVALUATION ----- Cardiac activity present. FHR 138 bpm. movements: present. Presentation: cephalic Placenta: Placental site: posterior Umbilical cord: Cord vessels: 3 vessel cord. Amniotic fluid: Amount of AF: normal amount. MVP 4.4 cm. MARCELINO 14.2 cm. Q1 3.7 cm, Q2 2.1 cm, Q3 4.4 cm, Q4 4.0 cm ANATOMY ----- The following structures appear normal: Head / Neck Cranium. Lateral ventricles. Choroid plexus. Midline falx. Cavum septi pellucidi. Heart / Thorax Diaphragm. Abdomen Stomach. Kidneys. Bladder. GROWTH OVERVIEW ----- Exam date GA BPD (mm) HC (mm) AC (mm) FL (mm) HL (mm) EFW (g) 05/18/2024 21w 0d 46.8 17% 177.8 13% 165.4 63% 33.1 20% 32.4 40% 386 40% 08/03/2024 32w 0d 79.6 39% 299.2 43% 298.5 92% 59.8 16% 2,057 66% COMMENT ----- Patient's name and date of were verified by the concession stand attendant prior to the exam IMPRESSION ----- 1. Single living fetus with a gestational age of 32w 0d, based on the reported clinical dates. 2. Current growth parameters are consistent with the stated EDC. The size is appropriate for gestational age at 66% percentile (2057 g). 3. Unremarkable limited anatomy noted. A detailed anatomy cannot be performed secondary to advanced gestational age. However, there are no gross structural abnormalities noted. 4. The amniotic fluid is normal for gestational age (MVP:4.4 cm , MARCELINO:14.2 cm ). 5. posterior placenta. No previa/not low-lying. 6. cephalic presentation. Recommendations: 1. Follow up sonogram as clinically indicated Thank you for allowing us to participate in the care of this patient. Procedure Note Kenny Downs MD - 08/03/2024 STL FOLLOW UP ----- Pat. Name:Ebony BARBER Date:08/03/2024 8:15am Pat. NO: [id number] MD:PEPE LINO MD Site:[address] Hospitalographer:Malaika Monae RDMS :1990Age:34 ----- INDICATION ----- Advanced Maternal Age (AMA), Multigravida Screening Follow-Up CODING ----- Diagnoses Z3A.32: Weeks of gestation O09.523: Supervision of elderly multigravida Z36.2: Encounter for other screeningfollow-up Procedures 11361: Ultrasound, uterus, real time withimage documentation, follow up, transabdominal approach per fetus HISTORY ----- OB History 2. Para 1 T1L1 METHOD ----- Transabdominal ultrasound examination ----- Stock . Number of fetuses: 1 DATING ----- LMP on:12/23/2023 GA by LMP32 w + 0 d IKE by LMP:09/28/2024 GA by prior [id number] w + 0 d IKE by prior assessment:09/28/2024 Ultrasound examination on:08/03/2024 GA by U/S based upon:AC, BPD, EFW, Femur, HC GA by U/S32 w + 4 d IKE by U/S:09/24/2024 Method of dating:Restore dating from previous exam Assigned:based on the LMP, selected on 05/18/2024 Assigned GA32 w + 0 d Assigned IKE:09/28/2024 BIOMETRY ----- BPD 79.6 mm 32w 0d 39%Hadlock OFD 106.6 mm 35w 1d 96%Chela HC 299.2 mm 33w 1d 43%Hadlock AC 298.5 mm 33w 6d 92%Hadlock Femur 59.8 mm 31w 1d 16%Hadlock HC / AC 1.00 17%Nicolaides Weight Calculation: EFW 2,057 g 32w 3d66% Hadlock EFW (lb,oz) 4 lb 9 oz EFW by Hadlock ([id number]) Head / Face / Neck Biometry: Sewing Line Baler 6.1mm Extremities / Bony Struc Biometry: FL / BPD 0.75 FL / HC 0.20 FL / AC 0.20 GENERAL EVALUATION ----- Cardiac activity present. FHR 138 bpm. movements: present.Presentation: cephalic Placenta: Placental site: posterior Umbilical cord: Cord vessels: 3 vessel cord. Amniotic fluid: Amount of AF: normal amount. MVP 4.4 cm. MARCELINO 14.2 cm. Q13.7 cm, Q2 2.1 cm, Q3 4.4 cm, Q4 4.0 cm ANATOMY ----- The following structures appear normal: Head / Neck Cranium. Lateral ventricles. Choroid plexus.Midline falx. Cavum septi pellucidi. Heart / Thorax Diaphragm. Abdomen Stomach. Kidneys. Bladder. GROWTH OVERVIEW ----- Exam date GA BPD (mm) HC (mm) AC (mm) FL(mm) HL (mm) EFW (g) 05/18/2024 21w 0d 46.8 17% 177.8 13% 165.4 63%33.1 20% 32.4 40% 386 40% 08/03/2024 32w 0d 79.6 39% 299.2 43% 298.5 92%59.8 16% 2,057 66% COMMENT ----- Patient's name and date of were verified by the concession stand attendant prior tothe exam IMPRESSION ----- 1. Single living fetus with a gestational age of 32w 0d, based on thereported clinical dates. 2. Current growth parameters are consistent with the stated EDC. The fetalsize is appropriate for gestational age at 66% percentile (2057 g). 3. Unremarkable limited anatomy noted. A detailed anatomycannot be performed secondary to advanced gestational age. However, there are no gross structural abnormalities noted. 4. The amniotic fluid is normal for gestational age (MVP:4.4 cm , MARCELINO:14.2cm ). 5. posterior placenta. No previa/not low-lying. 6. cephalic presentation. Recommendations: 1. Follow up sonogram as clinically indicated Thank you for allowing us to participate in the care of this patient. us Pepe Lino MD US ORDERABLES Final Result documented in this encounter Visit Diagnoses Diagnosis Encounter for ultrasound to assess growth documented in this encounter
--- OUTSIDE RECORDS SUMMARY | 2024-08-04 10:08 | XMS_ITS | Clinical Summary ---
Author Organization [facility] Address [address] [place] [address] Care Team Providers Care Knockout Machine Operator Name Role Phone Ashley Obrien MD Primary Care Provider [phone] Kandiec Valencia Unavailable [phone] Allergies Active Allergy Reactions Criticality Noted Date [...] Comments Blood Pressure 127/83 06/26/2022 3:29 PM PAPER CUTTER OPERATOR Pulse 94 06/26/2022 3:29 PM PAPER CUTTER OPERATOR Temperature 37.8 C (100 F) 05/18/2022 5:21 PM PAPER CUTTER OPERATOR Respiratory Rate 16 05/18/2022 5:21 PM PAPER CUTTER OPERATOR Oxygen Saturation 95% 05/18/2022 5:21 PM PAPER CUTTER OPERATOR Inhaled Oxygen Concentration - - Weight 66.3 kg (146 lb 3.2 oz) 06/26/2022 3:29 P M PAPER CUTTER OPERATOR Height 167.6 cm (5' 6 ) 06/26/2022 3:29 PM PAPER CUTTER OPERATOR Body Mass Index 23.6 06/26/2022 3:29 PM PAPER CUTTER OPERATOR Plan of Treatment Health Maintenance Due Date [...] patient's age to complete this topic Insurance [facility] HMO/PPO Address: [address] [place] [address] [facility] HMO/PPO Address: [address] [place] [address] Care Teams Knockout Machine Operator Relationship Specialty Start Date End Date Ashley Obrien MD [address] [place] [address] PCP - General Obstetrics and Gynecology 03/14/22 Kandice Valencia PA [address] [place] [id number] [place] [address] Physician Sales Recruiting Coordinator Colon and Rectal Surgery 06/26/22
--- OUTSIDE RECORDS SUMMARY | 2024-08-04 10:08 | XMS_ITS | Clinical Summary ---
Author Organization [facility] Address [address] [place] [address] Phone Care Team Providers Care Sweatband Drummer Name Role Phone Natalia Guerra APRN, PUBLIC HEALTH DIRECTOR Unavailable [phone] Amber Styles SPED TEACHER, PUBLIC HEALTH DIRECTOR Primary Care Provider + Allergies Active Allergy Reactions Criticality Noted Date Comments Codeine Rash Medium 05/09/2022 Medications Vit-Fe Fumarate-FA ( VITAMIN PO) Take by mouth. Active Polyethylene Glycol 3350 (MIRALAX PO) Take by mouth. Active citalopram (CeleXA) 10 MG TabletIndication s:Anxiety TAKE 1 TABLET BY MOUTH EVERY DAY 90 Tablet 06/12/2024 Active Active Problems No known active problems Encounters Date Type Department Care Team Description 06/12/2024 Refill [facility] [place], [place] [address] [place] [address] Amber Styles, SPED TEACHER, PUBLIC HEALTH DIRECTOR Medication Refill from Last 3 Months Immunizations Immunization Administration Dates Next Due Influenza Vaccine, Quadrivalent, PF 06/07/2022,0 07/28/2021 TDAP Vaccine 01/09/2022 Family History Medical History Relation Name Comments No Known Problems Brother Hypertension Father No Known Problems Half-Brother No Known Problems Half-Sister Diabetes Mother Relation Name Status Comments Brother Alive Father Alive Half-Brother Alive Half-Sister Alive Mother Alive Social History Tobacco Use Types Packs/Day Years Used Date Smoking Tobacco: Never Smokeless Tobacco: Never Tobacco Cessation:Counseling Given: Not Answered Alcohol Use Standard Drinks/Week Comments Yes 1 (1 standard drink = 0.6 oz pur e alcohol) Socially C Utilities Answer Date Recorded In the past 12 months has e electric, gas, oil, or water company threatened to shut off services in your home? No 12/17/2023 Social Connection and Isolat ion Panel [NHANES] Answer Date Recorded In a typical week, how many times do you talk on the phone with family, friends, or neighbors? More than three times a week 12/17/2023 How often do you get togethe r with friends or relatives? More than three times a week 12/17/2023 How often do you attend chur ch or pentecostal services? Never 12/17/2023 Do you belong to any clubs o r organizations such as moravian groups, unions, fraternal or athletic groups, or school groups? No 12/17/2023 How often do you attend meet ings of the clubs or organizations you belong to? Never 12/17/2023 Are you , , di vorced, , never , or living with a partner? 12/17/2023 AUDIT-C Answer Date Recorded Q1: How often do you have a drink containing alc ohol? 2-4 times a month 12/17/2023 Q2: How many drinks containi ng alcohol do you have on a typical day when you are drinking? 1 or 2 12/17/2023 Q3: How often do you have si x or more drinks on one occasion? Less than monthly 12/17/2023 Overall Financial Resource Strain (CARDIA) Answe r Date Recorded How hard is it for you to pa y for the very basics like food, housing, medical care, and heating? Not hard at all 12/17/2023 PHQ-2 Answer Date Recorded Total Score - Questions 1-9 0 01/24 [facility] Occupat ional Health - Occupational Stress Questionnaire Answer Date Recorded Do you feel stress - tense, restless, nervous, or anxious, or unable to sleep at night because your mind is troubled all the time - these days? Only a little 12/17/2023 Exercise Vital Sign Answer Date Recorde d On average, how many days pe r week do you engage in moderate to strenuous exercise (like a brisk walk)? 3 days 12/17/2023 On average, how many minutes do you engage in exercise at this level? 40 min 12/17/2023 Hunger Vital Sign Answer Date Recorded Within the past 12 months, y ou worried that your food would run out before you got the money to buy more. Never true 12/17/19 24 Within the past 12 months, t he food you bought just didn't last and you didn't have money to get more. Never true 12/17/2023 PRAPARE - Transportation Answer Date Re corded In the past 12 months, has l ack of transportation kept you from medical appointments or from getting medications? No 11/23 In the past 12 months, has l ack of transportation kept you from meetings, work, or from getting things needed for daily living? No 12/17/2023 Housing Stability Vital Sign Answer Ildefonso e Recorded In the last 12 months, was t here a time when you were not able to pay the mortgage or rent on time? No 12/17/2023 Number of Times Moved in the Last Year Not on fi le 12/17/2023 At any time in the past 12 m [facility], were you homeless or living in a long-term (including now)? No 12/17/2023 Education Answer Date Recorded What is the highest level of school you have completed or the highest degree you have received? Master's degree (e.g., MA, MS, [place]ola, MEd, TONG CARRIER, NORMA) 12/24/2022 Sexually Active Control Partners Comments Yes None Male Comments No Sex and Gender Information Value Date Recorded Sex Assigned at Not on file Legal Sex Female 8:12 AM LASER SYSTEMS ENGINEER Gender Identity Not on file Sexual Orientation Not on file Last Filed Vital Signs Vital Sign Reading Time Taken Comments Blood Pressure 104/64 12/18/2023 7:56 AM CDT Pulse 75 12/18/2023 7:56 AM CDT Temperature 36.7 C (98.1 F) 12/18/2023 7:56 AM CDT Respiratory Rate 18 12/18/2023 7:56 AM CDT Oxygen Saturation 100% 12/18/2023 7:56 AM CDT Inhaled Oxygen Concentration - - Weight 62.4 kg (137 lb 9.6 oz) 12/18/2023 7:56 A M CDT Height 167.6 cm (5' 6 ) 12/18/2023 7:56 AM CDT Body Mass Index 22.21 12/18/2023 7:56 AM CDT Plan of Treatment Upcoming Encounters Date Type Department Care Team (Late st Contact Info) Description 12/18/2024 7:45 AM CDT Office Visit [facility] [place], [place] [address] [place] [address] Amber Styles, SPED TEACHER, PUBLIC HEALTH DIRECTOR [address] [place] [address] Health Maintenance Due Date Last Done Comments Hepatitis C Virus (HCV) Screening 1990 Hepatitis B Immunization (1 of 3 - 19+ 3-dose series) 2008 HPV/Cotest 2019 Cervical Cancer Screening (CCS) 05/09/2025 Pap Smear 05/09/2025 05/09/2022 Td Immunization Every 10 Years (Adults With 1 Tdap) 01/10/2032 01/09/2022 Respiratory Syncytial Virus (RSV) Immunization (Adult) (1 - 1-dose 75+ series) 2064 SARS-COV-2 Immunization Discontinued 06/10/2021 DTaP/Tdap/Td Immunization Discontinued 01/09/2022 Influenza Immunization Discontinued 2, 07/28/2021 Meningococcal Immunization (ACWY) Aged Out No longer eligible based on patient's age to complete this topic Pneumococcal Immunization Combined Aged Out No longer eligible based on patient's age to complete this topic Rotavirus Immunization Aged Out No lo nger eligible based on patient's age to complete this topic Insurance [facility] Care Teams Sweatband Drummer Relationship Specialty Start Date End Date Amber Styles APRN, PUBLIC HEALTH DIRECTOR [address] [place] [address] PCP - General Advanced Practice Nurse 12/18/23 Natalia Guerra APRN, PUBLIC HEALTH DIRECTOR Gastroenterology 06/07/22
--- OUTSIDE RECORDS SUMMARY | 2024-08-04 10:08 | XMS_ITS | Clinical Summary ---
Author Organization [facility] Address [address] [place] [address] Phone Care Team Providers Care Computerized Table Cutter Name Role Phone Unavailable Primary Care Provider Unavailabl e Encounters Date Type Department Care Team Description 08/03/2024 8:14 AM SPEECH CORRECTION CONSULTANT - 08/03/2024 11:59 PM SPEECH CORRECTION CONSULTANT Hospital Encounter [facility] 2022 [address]ia [address] [place] [phone] Pepe Lino MD Arrived Discharge Disposition: Home or Self Care 07/16/2024 External Device Data STL ABSTRACTION Provider, Abstract 07/15/2024 External Device Data STL ABSTRACTION Provider, Abstract 07/14/2024 External Device Data STL ABSTRACTION Provider, Abstract 07/08/2024 External Device Data STL ABSTRACTION Provider, Abstract 05/19/2024 External Device Data STL ABSTRACTION Provider, Abstract 05/18/2024 7:30 AM SPEECH CORRECTION CONSULTANT - 05/18/2024 11:59 PM SPEECH CORRECTION CONSULTANT Hospital Encounter [facility] [address] [place] [phone] Pepe Lino MD Discharge Disposition: Home or Self Care from Last 3 Months Social History Tobacco Use Types Packs/Day Years Used Date Smoking Tobacco: Never Assessed Comments Unknown Sex and Gender Information Value Date Recorded Sex Assigned at Not on file Legal Sex Female 9:08 AM SPEECH CORRECTION CONSULTANT Gender Identity Not on file Sexual Orientation Not on file Plan of Treatment Health Maintenance Due Date [...] UP PER FETUS Routine 08/03/2024 8:35 AM SPEECH CORRECTION CONSULTANT Encounter for ultrasound to assess growth US OB DETAIL SINGLE GEST Routine 05/18/2024 8:17 AM SPEECH CORRECTION CONSULTANT screening for malformation using ultrasonics from Last 3 Months Results * US OB FOLLOW UP PER FETUS (08/03/2024 8:35 AM SPEECH CORRECTION CONSULTANT) Anatomical Region Laterality Modality Pelvis Ultrasound 08/03/2024 8:15 AM SPEECH CORRECTION CONSULTANT Narrative 08/03/2024 8:48 AM SPEECH CORRECTION CONSULTANT STL FOLLOW UP ----- Pat. Name: BUNNY BARBER Study Date: 08/03/2024 8:15am Pat. NO: [id number] Referring MD: PEPE LINO MD Site: [facility]: Malaika Monae RDMS : 1990 Age: 34 ----- INDICATION ----- Advanced Maternal Age (AMA), Multigravida Screening Follow-Up CODING ----- Diagnoses Z3A.32: Weeks of gestation O09.523: Supervision of elderly multigravida Z36.2: Encounter for other screening follow-up Procedures 79172: Ultrasound, uterus, real time with image documentation, [...] 4 lb 9 oz EFW by Hadlock ([id number]) Head / Face / Neck Biometry: Dry Janitor 6.1 mm Extremities / Bony Struc Biometry: [...] and date of were verified by the printing assistant prior to the exam IMPRESSION ----- 1. [...] Pat. Name:Ebony BARBER Date:08/03/2024 8:15am Pat. NO: [id number] MD:PEPE LINO MD [facility]ala[facility] Mon[facility] RDMS :1990Age:34 ----- INDICATION ----- Advanced Maternal Age (AMA), Multigravida Screening Follow-Up CODING ----- Diagnoses Z3A.32: Weeks of gestation O09.523: Supervision of elderly multigravida Z36.2: Encounter for other screeningfollow-up Procedures 74364: Ultrasound, uterus, real time withimage documentation, follow up, transabdominal approach per fetus HISTORY ----- OB History 2. Para 1 T1L1 METHOD ----- Transabdominal ultrasound examination ----- Stock . Number of fetuses: 1 DATING ----- LMP on:12/23/2023 GA by [id number] w + 0 d IKE by LMP:09/28/2024 GA by prior [email or web address] w + 0 d IKE by prior [...] 4 lb 9 oz EFW by Hadlock ([id number]) Head / Face / Neck Biometry: Dry Janitor 6.1mm Extremities / Bony Struc Biometry: FL [...] and date of were verified by the printing assistant prior tothe exam IMPRESSION ----- 1. Single [...] Pepe Lino MD US ORDERABLES Final Result * US OB DETAIL SINGLE GEST (05/18/2024 8:17 AM SPEECH CORRECTION CONSULTANT) Anatomical Region Laterality Modality Pelvis Ultrasound 05/18/2024 7:49 AM SPEECH CORRECTION CONSULTANT Narrative 05/18/2024 8:23 AM SPEECH CORRECTION CONSULTANT STL COMP ----- Name: BUNNY BARBER Study Date: 05/18/2024 7:49am Pat. NO: [id number] Referring MD: PEPE LINO MD Site: [facility]: Kathrin Harvey RDMS : 1990 Age: 34 ----- INDICATION ----- Advanced Maternal Age (AMA), Multigravida patient reports low risk NIPT Anatomy Survey CODING ----- Diagnoses Z3A.21: Weeks of gestation Z36.3: Encounter for screening for malformations O09.522: Supervision of elderly multigravida Procedures 85604: Ultrasound, uterus, real time with image documentation, and maternal evaluation plus detailed anatomic examination, transabdominal approach HISTORY ----- OB History 2. Para 1 T1L1 MATERNAL ASSESSMENT ----- Physical Exam Weight 65 kg. BMI 23.08 kg/m METHOD ----- Transabdominal ultrasound examination ----- Stock [...] d Assigned IKE: 09/28/2024 BIOMETRY ----- BPD 46.8 mm 20w 1d 17% Hadlock OFD 64.6 mm 21w 6d 80% Chela HC 177.8 mm 20w 2d 13% Hadlock Cerebellum tr 21.5 mm 21w 0d 42% Ch Nuchal fold 4.4 mm AC 165.4 mm 21w 4d 63% Hadlock Femur 33.1 mm 20w 2d 20% Hadlock Humerus 32.4 mm 20w 6d 40% Chela HC / AC 1.07 7% Nicolaides Weight Calculation: EFW 386 g 20w 6d 40% Hadlock EFW (lb,oz) 0 lb 14 oz EFW by Hadlock ([id number]) Head / Face / Neck Biometry: Dry Janitor 5.1 mm CM 3.6 mm 7% Nicolaides Outer IOD 31.7 mm 20w 3d 14% Chela Extremities / Bony Struc Biometry: FL / BPD 0.71 35% Hadlock FL / HC 0.19 42% Hadlock FL / AC 0.20 4% Hadlock GENERAL EVALUATION ----- Cardiac activity present. FHR 155 bpm. movements: present. Presentation: breech Placenta: Placental site: posterior Umbilical cord: Cord vessels: 3 vessel cord. Insertion site: placental insertion: normal Amniotic fluid: Amount of AF: normal amount. MVP 4.1 cm ANATOMY ----- The following structures appear normal: Head / Neck Cranium. Lateral ventricles. Choroid plexus. Midline falx. Cavum septi pellucidi. Cerebellum. Cisterna magna. Thalami. Nuchal fold. Face Lips. Profile. Nose. Palate. Orbits. Heart / Thorax 4-chamber view. RVOT view. LVOT view. 3-vessel view. 4-mqzegd-szlvafm view. Situs. Aortic arch view. Ductal arch view. Superior vena cava. Inferior vena cava. High short axis view. Cardiac rhythm. Diaphragm. Abdomen Abdominal wall. Stomach. Kidneys. Bladder. Spine Cervical spine. Thoracic spine. Lumbar spine. Sacral spine. Extremities / Arms. Right hand. Left hand. Legs. Right foot. Left foot. Skeleton MATERNAL STRUCTURES ----- Cervix Visualized Approach - Transabdominal: Cervical length 42.8 mm Right Ovary Suboptimal Left Ovary Normal Size 26 mm x 16 mm x 12 mm. Vol 2.6 cm GROWTH OVERVIEW ----- Exam date GA BPD (mm) HC (mm) AC (mm) FL (mm) HL (mm) EFW (g) 05/18/2024 21w 0d 46.8 17% 177.8 13% 165.4 63% 33.1 20% 32.4 40% 386 40% COMMENT ----- Patient's name and date of were verified by the printing assistant before the exam IMPRESSION ----- Summary of [...] Bowling MD - 05/18/2024 STL COMP ----- Pat. Name:Ebony BARBER Date:05/18/2024 7:49am Pat. NO: [id number] MD:PEPE LINO MD Site:[facility]:Kathrin Harvey RDMS :1990Age:34 ----- INDICATION ----- Advanced Maternal Age (AMA), Multigravida patient reports [facility] Anatomy Survey CODING ----- Diagnoses Z3A.21: Weeks of gestation Z36.3: Encounter for screening formalformations O09.522: Supervision of elderly multigravida Procedures 19054: Ultrasound, uterus, real time withimage documentation, and maternal evaluation plus detailed anatomic examination,transabdominal approach HISTORY ----- OB History 2. Para 1 T1L1 MATERNAL ASSESSMENT ----- Physical Exam Weight 65 kg. BMI 23.08 kg/m METHOD ----- Transabdominal ultrasound examination ----- Stock [...] 0 lb 14 oz EFW by Hadlock ([id number]) Head / Face / Neck Biometry: Dry Janitor 5.1 mm CM 3.6 mm 7%Nicolaides Outer [...] 4-chamber view. RVOT view. LVOT view. 3-vesselview. 7-joivac-iprhyue view. Situs. Aortic arch view. Ductal arch [...] 16 mm x 12 mm. Vol 2.6 cm GROWTH OVERVIEW ----- Exam date GA BPD (mm) HC (mm) AC (mm) FL(mm) HL (mm) EFW (g) 05/18/2024 21w 0d 46.8 17% 177.8 13% 165.4 63%33.1 20% 32.4 40% 386 40% COMMENT ----- Patient's name and date of were verified by the printing assistant beforethe exam IMPRESSION ----- Summary of Findings: [...] your patient's care. us Pepe Lino MD US ORDERABLES Final Result from Last 3 Months Insurance [facility] [id number] Member Subscriber Plan / Payer (Ef fective 2024-Present) Name:BUNNY BARBER Relation to Subscriber:Spouse Name:LA NENA BARBER Date of :1988 Address: [address] [place] [address] Payer ID:[id number] (NAIC) Type:HMO Address: [facility] [id number] [place] [id number]
--- OUTSIDE RECORDS SUMMARY | 2024-08-04 10:08 | XMS_ITS | Referral Summary ---
Author Organization [facility] Address [address] [place] [phone] Care Team Providers Care Reception Specialist Name Role Phone Ashley Obrien MD Primary Care Provider [phone] Kandice Valencia Unavailable [phone] Allergies Active Allergy Reactions Criticality Noted Date [...] Comments Blood Pressure 127/83 06/26/2022 3:29 PM CREW CHIEF Pulse 94 06/26/2022 3:29 PM CREW CHIEF Temperature 37.8 C (100 F) 05/18/2022 5:21 PM CREW CHIEF Respiratory Rate 16 05/18/2022 5:21 PM CREW CHIEF Oxygen Saturation 95% 05/18/2022 5:21 PM CREW CHIEF Inhaled Oxygen Concentration - - Weight 66.3 kg (146 lb 3.2 oz) 06/26/2022 3:29 P M CREW CHIEF Height 167.6 cm (5' 6 ) 06/26/2022 3:29 PM CREW CHIEF Body Mass Index 23.6 06/26/2022 3:29 PM CREW CHIEF Plan of Treatment Not on file Insurance [facility] CHOICE PL[facility] H[facility]/PPO Address[facility] [address] [place] [address] [facility] CHOICE PLUS [facility] HMO/PPO Address: [address] [address] [place] [address] Care Teams Reception Specialist Relationship Specialty Start Date End Date Ashley Obrien MD [address] [place] [address] PCP - General Obstetrics and Gynecology 03/14/22 Kandice Valencia PA [address] [place] [phone] [place] [address] Physician Salesperson Jewelry Colon and Rectal Surgery 06/26/22
[2024-08-04 10:10] LABS: Basophils Percent Auto 0.2 % (0.2-1.2); Eosinophils Absolute Auto 0.2 K/mm3 (0-0.3); Eosinophils Percent Auto 2.2 % (0-4.4); Hematocrit 34.6 % (37.0-47.0); Hemoglobin 11.6 g/dL (12.0-15.0); Immature Granulocyte Absolute 0.03 K/mm3 (0.00-0.031); Immature Granulocyte Percent A 0.4 % (0-0.5); Lymphocytes Absolute Auto 1.59 K/mm3 (0.9-3.2); Lymphocytes Percent Auto 19.7 % (18.3-44.2); Mean Corpuscular HGB Conc 33.5 g/dl (32-36); Mean Corpuscular Hemoglobin 30.1 pg (26-34); Mean Corpuscular Volume 89.9 fl (80-100); Mean Platelet Volume 9.5 fl (7.4-10.4); Monocytes Absolute Auto 0.5 K/mm3 (0.1-0.6); Monocytes Percent Auto 6.7 % (2.6-8.5); Neutrophils Absolute Auto 5.7 K/mm3 (1.3-6.7); Neutrophils Percent Auto 70.8 % (45.5-73.1); Platelet Count Result 224 k/mm3 (150-375); Red Blood Count 3.85 M/mm3 (4.2-5.4); Red Cell Distribution Width 12.8 % (11.5-14.5); White Blood Count 8.1 K/mm3 (4.5-10.0)
[2024-08-04 10:45] LABS: HIV 1/2 Ab P24 Ag Result Negative (Negative)
[2024-08-04 13:33] LABS: Rapid Plasma Reagin Non-Reactive (NonReactive)
== END 2024-08-04 09:21 | disposition home or self-care (01) ==
LOC: ANHLAB 09:21
PROVIDERS: Visit Provider Nurse Practitioner Obstetrics & Gynecology
DX: Z34.90 Encounter for supervision of normal pregnancy, unspecified, unspecified trimester (principal); Z3A.00 Weeks of gestation of pregnancy not specified
CPT/HCPCS: 36415; 85025; 86592; 86703; G0432

== ENCOUNTER 2024-09-27 17:03 | Inpatient (IN) | payer OTHER, SELFPAY ==
[2024-09-27] VITALS (17 sets, daily range): BP systolic 95–137; BP diastolic 37–84; PULSE 57–127; TEMP 36.9; BMI 30.2
--- OUTSIDE RECORDS SUMMARY | 2024-09-27 17:08 | XMS_ITS | Clinical Summary ---
Author Organization [facility] Address [address] [place] [phone] Care Team Providers Care Iron Melter Name Role Phone Ashley Obrien MD Primary Care Provider [phone] Kandice Valencia Unavailable [phone] Allergies Active Allergy Reactions Criticality Noted Date [...] Comments Blood Pressure 127/83 06/26/2022 3:29 PM DIRECTOR OF NUCLEAR MEDICINE Pulse 94 06/26/2022 3:29 PM DIRECTOR OF NUCLEAR MEDICINE Temperature 37.8 C (100 F) 05/18/2022 5:21 PM DIRECTOR OF NUCLEAR MEDICINE Respiratory Rate 16 05/18/2022 5:21 PM DIRECTOR OF NUCLEAR MEDICINE Oxygen Saturation 95% 05/18/2022 5:21 PM DIRECTOR OF NUCLEAR MEDICINE Inhaled Oxygen Concentration - - Weight 66.3 kg (146 lb 3.2 oz) 06/26/2022 3:29 P M DIRECTOR OF NUCLEAR MEDICINE Height 167.6 cm (5' 6 ) 06/26/2022 3:29 PM DIRECTOR OF NUCLEAR MEDICINE Body Mass Index 23.6 06/26/2022 3:29 PM DIRECTOR OF NUCLEAR MEDICINE Plan of Treatment Health Maintenance Due Date [...] patient's age to complete this topic Insurance [facility] H[facility]/PPO Address: [address] [place] [address] [facility] H[facility]/PPO Address: [address] [place] [address] Care Teams Iron Melter Relationship Specialty Start Date End Date Ashley Obrien MD [address] [place] [address] PCP - General Obstetrics and Gynecology 03/14/22 Kandice Valencia PA [address] [place] [phone] [place] [address] Physician Global Clinical Leader Colon and Rectal Surgery 06/26/22
--- OUTSIDE RECORDS SUMMARY | 2024-09-27 17:08 | XMS_ITS | Clinical Summary ---
Author Organization [facility] Address [address] [place] [address] Phone Care Team Providers Care Exploration Manager Name Role Phone Natalia Guerra APRN, CLIENT SERVER DEVELOPER Unavailable [phone] Amber Styles PLASTIC DOLLS MOLD FILLER, CLIENT SERVER DEVELOPER Primary Care Provider + Allergies Active Allergy Reactions Criticality Noted Date Comments Codeine Rash Medium 05/09/2022 Medications Vit-Fe Fumarate-FA ( VITAMIN PO) Take by mouth. Active Polyethylene Glycol 3350 (MIRALAX PO) Take by mouth. Active citalopram (CeleXA) 10 MG TabletIndicatio ns:Anxiety TAKE 1 TABLET BY MOUTH EVERY DAY 90 Tablet 5 Active citalopram (CeleXA) 10 MG TabletIndicatio ns:Anxiety TAKE 1 TABLET BY MOUTH EVERY DAY 90 Tablet 4 09/11/19 25 Discontinued Active Problems No known active problems Encounters Date Type Department Care Team Description 09/10/2024 Refill [facility] - Family [facility] [address] [place] [address] Amebr Styles, PLASTIC DOLLS MOLD FILLER, CLIENT SERVER DEVELOPER Medication Refill from Last 3 Months Immunizations [...] = 0.6 oz pur e alcohol) Socially [employer] Utilities Answer Date Recorded In the past [...] often do you attend chur ch or mormonism services? Never 12/17/2023 Do you belong to any clubs o r organizations such as restorationist groups, unions, fraternal or athletic groups, or [...] Total Score - Questions 1-9 0 01/24 [facility] of Occupat ional Health - Occupational Stress [...] any time in the past 12 m [facility], were you homeless or living in a assisted (including now)? No 12/17/2023 Education Answer Date Recorded What is the highest level of school you have completed or the highest degree you have received? Master's degree (e.g., MA, MS, [place], MEd, STUDIO COUCH FRAME BUILDER, NORMA) 12/24/2022 Sexually Active Control Partners Comments Yes None Male Comments No Sex and Gender Information Value Date Recorded Sex Assigned at Not on file Legal Sex Female 8:12 AM PRESS OPERATOR APPRENTICE Gender Identity Not on file Sexual Orientation [...] Description 12/18/2024 7:45 AM CDT Office Visit [facility] - Family Medicine [facility] [address] [place] [address] Amber Styles, PLASTIC DOLLS MOLD FILLER, CLIENT SERVER DEVELOPER [address] [place] [address] Health Maintenance Due Date Last Done Comments [...] patient's age to complete this topic Insurance [facility] Care Teams Exploration Manager Relationship Specialty Start Date End Date Amber Styles APRN, CLIENT SERVER DEVELOPER [address] [place] [address] PCP - General Advanced Practice Nurse 12/18/23 Natalia Guerra APRN, CLIENT SERVER DEVELOPER Gastroenterology 06/07/22
--- OUTSIDE RECORDS SUMMARY | 2024-09-27 17:08 | XMS_ITS | Referral Summary ---
Author Organization [facility] Address [address] [place] [phone] Care Team Providers Care Flight Engineer Name Role Phone Ashley Obrien MD Primary Care Provider [phone] Kandice Valencia Unavailable [phone] Allergies Active Allergy Reactions Criticality Noted Date [...] Comments Blood Pressure 127/83 06/26/2022 3:29 PM CORPORATE QUALITY ASSURANCE MANAGER Pulse 94 06/26/2022 3:29 PM CORPORATE QUALITY ASSURANCE MANAGER Temperature 37.8 C (100 F) 05/18/2022 5:21 PM CORPORATE QUALITY ASSURANCE MANAGER Respiratory Rate 16 05/18/2022 5:21 PM CORPORATE QUALITY ASSURANCE MANAGER Oxygen Saturation 95% 05/18/2022 5:21 PM CORPORATE QUALITY ASSURANCE MANAGER Inhaled Oxygen Concentration - - Weight 66.3 kg (146 lb 3.2 oz) 06/26/2022 3:29 P M CORPORATE QUALITY ASSURANCE MANAGER Height 167.6 cm (5' 6 ) 06/26/2022 3:29 PM CORPORATE QUALITY ASSURANCE MANAGER Body Mass Index 23.6 06/26/2022 3:29 PM CORPORATE QUALITY ASSURANCE MANAGER Plan of Treatment Not on file Insurance [facility] CHO[facility] PLUS [facility] PL[facility] Care Teams Flight Engineer Relationship Specialty Start Date End Date Ashley Obrien MD [address] [place] [address] PCP - General Obstetrics and Gynecology 03/14/22 Kandice Valencia PA [address] [place] [phone] [place] [address] Physician Boat Engines Installer Colon and Rectal Surgery 06/26/22
--- OUTSIDE RECORDS SUMMARY | 2024-09-27 17:08 | XMS_ITS | Clinical Summary ---
Author Organization [facility] Address [address] [place] [address] Phone Care Team Providers Care Coal Inspector Name Role Phone Unavailable Primary Care Provider Unavailabl e Encounters Date Type Department Care Team Description 09/09/2024 External Device Data STL ABSTRACTION Provider, Abstract 09/09/2024 External Device Data [facility] ABSTRACTION Provider, Abstract 09/07/2024 2:55 PM CDT - 09/07/2024 11:59 PM CDT Hospital Encounter [facility] [address] [place] [phone] Pepe Lino MD Discharge Disposition: Home or Self Care 08/29/2024 External Device Data STL ABSTRACTION Provider, Abstract 08/28/2024 External Device Data STL ABSTRACTION Provider, Abstract 08/25/2024 External Device Data [facility] ABSTRACTION Provider, Abstract 08/11/2024 External Device Data STL ABSTRACTION Provider, Abstract 08/03/2024 8:14 AM AIRFREIGHT LOADING SUPERVISOR - 08/03/2024 11:59 PM AIRFREIGHT LOADING SUPERVISOR Hospital Encounter [facility] [address] [place] [phone] Pepe Lino MD Discharge Disposition: Home or Self Care 07/16/2024 External Device Data STL ABSTRACTION Provider, Abstract 07/15/2024 External Device Data STL ABSTRACTION Provider, Abstract 07/14/2024 External Device Data STL ABSTRACTION Provider, Abstract 07/08/2024 External Device Data STL ABSTRACTION Provider, Abstract from Last 3 Months Social History Tobacco Use Types Packs/Day Years Used Date Smoking Tobacco: Never Assessed Comments Unknown Sex and Gender Information Value Date Recorded Sex Assigned at Not on file Legal Sex Female 9:08 AM AIRFREIGHT LOADING SUPERVISOR Gender Identity Not on file Sexual Orientation Not on file Plan of Treatment Health Maintenance Due Date Last Done Comments HEPATITIS B VACCINES (1 of 3 - 19+ 3-dose series) 2008 HPV/Cotest (21-29) 2010 PAP SMEAR 2010 CERVICAL CANCER SCREENING 2019 HPV/Cotest (30-65) 2019 PAP SMEAR 2019 INFLUENZA VACCINE (#1) 2024 2, 07/28/2021 Preventative Visit- Commercial 06/24/2024 DTAP/TDAP/TD VACCINES (2 - T d or Tdap) 01/10/2032 01/09/2022 HPV VACCINES Aged Out No longer eligi ble based on patient's age to complete this topic Procedures Procedure Name Priority Date/Time Associated Diagnosis Comments US OB LTD 1 OR MORE FETUSES Routine 09/07/2024 3:29 PM CDT History of decreased amniotic fluid in prior , currently US OB FOLLOW UP PER FETUS Routine 08/03/2024 8:35 AM AIRFREIGHT LOADING SUPERVISOR Encounter for ultrasound to assess growth from Last 3 Months Results * US OB LTD 1 OR MORE FETUSES (09/07/2024 3:29 PM CDT) Anatomical Region Laterality Modality Pelvis Ultrasound 09/07/2024 2:57 PM CDT Narrative 09/07/2024 3:20 PM CDT STL LIMITED ----- Pat. Name: KIARA BARBER Study Date: 09/07/2024 2:57pm Pat. NO: [id number] Referring MD: PEEP LINO MD Site: [facility] Project Engineering Manager: Malaika Monae RDMS : 1990 Age: 34 ----- INDICATION ----- Advanced Maternal Age (AMA), Multigravida Screening Follow-Up CODING ----- Diagnoses Z3A.37: Weeks of gestation O09.523: Supervision of elderly multigravida Z36.2: Encounter for other screening follow-up Procedures [id number]: Ultrasound, uterus, real time with image documentation, limited one or more fetuses HISTORY ----- OB History 2. Para 1 T1L1 METHOD ----- Transabdominal ultrasound examination ----- Stock . Number of fetuses: 1 DATING ----- LMP on: 12/23/2023 GA by LMP 37 w + 0 d IKE by LMP: 09/28/2024 GA by prior assessment 37 w + 0 d IKE by prior assessment: 09/28/2024 Method of dating: Restore dating from previous exam Assigned: based on the LMP, selected on 05/18/2024 Assigned GA 37 w + 0 d Assigned IKE: 09/28/2024 GENERAL EVALUATION ----- Cardiac activity present. FHR 140 bpm. movements: present. Presentation: cephalic Placenta: Placental site: posterior Umbilical cord: Cord vessels: 3 vessel cord. Insertion site: placental insertion: normal Amniotic fluid: Amount of AF: normal amount. MVP 5.6 cm. MARCELINO 13.1 cm. Q1 0.0 cm, Q2 5.6 cm, Q3 5.3 cm, Q4 2.2 cm ANATOMY ----- The following structures appear normal: Heart / Thorax Cardiac rhythm. Abdomen Stomach. Bladder. GROWTH OVERVIEW ----- Exam date GA BPD (mm) HC (mm) AC (mm) FL (mm) HL (mm) EFW (g) 05/18/2024 21w 0d 46.8 17% 177.8 13% 165.4 63% 33.1 20% 32.4 40% 386 40% 08/03/2024 32w 0d 79.6 39% 299.2 43% 298.5 92% 59.8 16% 2,057 66% COMMENT ----- Patient's name and date of were verified by the superintendent service prior to the exam. IMPRESSION ----- 1. Stock living fetus with a gestational age of 37w 0d, based on the reported clinical dates. 2. Fetus is cephalic. 3. Amniotic fluid volume is normal for gestational age (MVP:5.6 cm MARCELINO:13.1 cm). Recommendations: - Follow up as clinically indicated. Thank you for allowing us to participate in the care of this patient. Procedure Note Tiera Holliday MD - 09/07/2024 STL LIMITED ----- Pat. Name:Ebony BARBER Date:09/07/2024 2:57pm Pat. NO: [id number] MD:PEPE LINO [facility]Malaika Monae RDMS :1990Age:34 ----- INDICATION ----- Advanced Maternal Age (AMA), Multigravida Screening Follow-Up CODING ----- Diagnoses Z3A.37: Weeks of gestation O09.523: Supervision of elderly multigravida Z36.2: Encounter for other screeningfollow-up Procedures [id number]: Ultrasound, uterus, real time withimage documentation, limited one or more fetuses HISTORY ----- OB History 2. Para 1 T1L1 METHOD ----- Transabdominal ultrasound examination ----- Stock . Number of fetuses: 1 DATING ----- LMP on:12/23/2023 GA by [id number] w + 0 d IKE by LMP:09/28/2024 GA by prior w + 0 d IKE by prior assessment:09/28/2024 Method of dating:Restore dating from previous exam Assigned:based on the LMP, selected on 05/18/2024 Assigned GA37 w + 0 d Assigned IKE:09/28/2024 GENERAL EVALUATION ----- Cardiac activity present. FHR 140 bpm. movements: present.Presentation: cephalic Placenta: Placental site: posterior Umbilical cord: Cord vessels: 3 vessel cord. Insertion site: placentalinsertion: normal Amniotic fluid: Amount of AF: normal amount. MVP 5.6 cm. MARCELINO 13.1 cm. Q10.0 cm, Q2 5.6 cm, Q3 5.3 cm, Q4 2.2 cm ANATOMY ----- The following structures appear normal: Heart / Thorax Cardiac rhythm. Abdomen Stomach. Bladder. GROWTH OVERVIEW ----- Exam date GA BPD (mm) HC (mm) AC (mm) FL(mm) HL (mm) EFW (g) 05/18/2024 21w 0d 46.8 17% 177.8 13% 165.4 63%33.1 20% 32.4 40% 386 40% 08/03/2024 32w 0d 79.6 39% 299.2 43% 298.5 92%59.8 16% 2,057 66% COMMENT ----- Patient's name and date of were verified by the superintendent service prior tothe exam. IMPRESSION ----- 1. Stock living fetus with a gestational age of 37w 0d, based on thereported clinical dates. 2. Fetus is cephalic. 3. Amniotic fluid volume is normal for gestational age (MVP:5.6 cmAFI:13.1 cm). Recommendations: - Follow up as clinically indicated. Thank you for allowing us to participate in the care of this patient. us Pepe Lino MD US ORDERABLES Final Result * US OB FOLLOW UP PER FETUS (08/03/2024 8:35 AM AIRFREIGHT LOADING SUPERVISOR) Anatomical Region Laterality Modality Pelvis Ultrasound 08/03/2024 8:15 AM AIRFREIGHT LOADING SUPERVISOR Narrative 08/03/2024 8:48 AM AIRFREIGHT LOADING SUPERVISOR STL FOLLOW UP ----- Pat. Name: KIARA BARBER Study Date: 08/03/2024 8:15am Pat. NO: [id number] Referring MD: PEPE LINO MD Site: [facility] Project Engineering Manager: Malaika Monae RDMS : 1990 Age: 34 ----- INDICATION ----- Advanced Maternal Age (AMA), Multigravida Screening Follow-Up CODING ----- Diagnoses Z3A.32: Weeks of gestation O09.523: Supervision of elderly multigravida Z36.2: Encounter for other screening follow-up Procedures [id number]: Ultrasound, uterus, real time with image documentation, [...] 4 lb 9 oz EFW by Hadlock ([id number]) Head / Face / Neck Biometry: Application Specialist 6.1 mm Extremities / Bony Struc Biometry: [...] and date of were verified by the superintendent service prior to the exam IMPRESSION ----- 1. [...] Pat. Name:Ebony BARBER Date:08/03/2024 8:15am Pat. NO: [id number] MD:PEPE LINO MD [facility]Malaika Monae RDMS :1990Age:34 ----- INDICATION ----- Advanced Maternal Age (AMA), Multigravida Screening Follow-Up CODING ----- Diagnoses Z3A.32: Weeks of gestation O09.523: Supervision of elderly multigravida Z36.2: Encounter for other screeningfollow-up Procedures [id number]: Ultrasound, uterus, real time withimage documentation, follow up, transabdominal approach per fetus HISTORY ----- OB History 2. Para 1 T1L1 METHOD ----- Transabdominal ultrasound examination ----- Stock . Number of fetuses: 1 DATING ----- LMP on:12/23/2023 GA by [id number] w + 0 d IKE by LMP:09/28/2024 GA by prior [id number] w + 0 d IKE by prior [...] 4 lb 9 oz EFW by [place]lock ([id number]) Head / Face / Neck Biometry: Application Specialist 6.1mm Extremities / Bony Struc Biometry: FL [...] and date of were verified by the superintendent service prior tothe exam IMPRESSION ----- 1. Single [...] of this patient. us Pepe Lino MD ORDERABLES Final Result from Last 3 Months Insurance [facility] [id number]
--- NOTE | 2024-09-27 18:36 | LDADM ---
This patient, Kiara Barber, was admitted to Labor/Delivery/Recovery 106 on 09/27/24 at 17:03. Plans for labor, pain management and were discussed with patient. Patient/family oriented to hospital policies and general routines including ID bracelet, bed and alarms, visiting hours, pain management, procedures, bathroom and other care routines, personal items, smoking policy, room service/diet and guest tray routines, security routines, and visiting hours. Patient/Family are encouraged to report perceived risks to care and to ask questions if they do not understand what they are told or what they should do. See OBIX for further documentation.
[2024-09-27] MEDS: miSOPROStol 25 MCG TABLET BUCCAL ×2 (18:48→23:06)
[2024-09-27 18:49] LABS: Basophils Percent Auto 0.3 % (0.2-1.2); Eosinophils Absolute Auto 0.1 K/mm3 (0-0.3); Eosinophils Percent Auto 0.5 % (0-4.4); Hematocrit 34.2 % (37.0-47.0); Hemoglobin 11.4 g/dL (12.0-15.0); Immature Granulocyte Absolute 0.06 K/mm3 (0.00-0.031); Immature Granulocyte Percent A 0.5 % (0-0.5); Lymphocytes Absolute Auto 2.29 K/mm3 (0.9-3.2); Lymphocytes Percent Auto 20.9 % (18.3-44.2); Mean Corpuscular HGB Conc 33.3 g/dl (32-36); Mean Corpuscular Hemoglobin 28.9 pg (26-34); Mean Corpuscular Volume 86.8 fl (80-100); Mean Platelet Volume 9.5 fl (7.4-10.4); Monocytes Absolute Auto 0.8 K/mm3 (0.1-0.6); Monocytes Percent Auto 7.2 % (2.6-8.5); Neutrophils Absolute Auto 7.7 K/mm3 (1.3-6.7); Neutrophils Percent Auto 70.6 % (45.5-73.1); Platelet Count Result 255 k/mm3 (150-375); Red Blood Count 3.94 M/mm3 (4.2-5.4); Red Cell Distribution Width 13.6 % (11.5-14.5)
[2024-09-27 19:39] LABS: HIV 1/2 Ab P24 Ag Result Negative (Negative)
[2024-09-27 19:53] LABS: Syphilis IgG/IgM Antibody Negative (Negative)
[2024-09-28] VITALS (129 sets, daily range): BP systolic 88–142; BP diastolic 34–92; PULSE 51–111; RESP 16; TEMP 36.1–37.1; O2SAT 95–100
[2024-09-28] MEDS: miSOPROStol 25 MCG TABLET BUCCAL (02:57)
[2024-09-28] MEDS: LACTATED RINGERS 1,000 ML 125 ML IV CONT ×3 (06:05→10:09)
--- NOTE | 2024-09-28 06:54 | P.PNAN_ITS ---
Anes - Initial Pre Proc Eval Procedure: labor epidural Date/Time: 09/28/24 06:54 Surgeon: Pepe Oates MD Pre Op Diagnosis: labor pain Pre Op Diagnosis: IOL Patient Data Age: 34 Gender: F Height: 1.68 m Weight: 85 kg Last Vital Signs Temp 37.1 C 09/28/24 05:00 Pulse 53 L 09/28/24 06:30 BP 120/75 09/28/24 06:30 Allergies Allergy/AdvReac Type Severity Reaction Status Date / Time codeine Allergy Unknown Rash Verified 09/25/24 08:14 tramadol Allergy Unknown heard Verified 09/27/24 17:21 voices when taking Home Medications ?Medication ?Instructions ?Recorded ?Confirmed ?Type prenat.vits,jackie,[id number] 1 tablet PO HS 01/13/22 09/25/24 History citalopram 10 mg tablet 10 mg PO DAILY 07/01/23 09/25/24 History doxylamine succinate 25 mg tablet 25 mg PO QHS PRN sleep 02/19/24 09/25/24 History (Unisom (doxylamine)) aspirin 81 mg tablet,delayed 81 mg PO DAILY 05/19/24 09/25/24 History release docusate sodium 100 mg capsule 100 mg PO HS 08/29/24 09/25/24 History (Col-Rite) Laboratory Tests 09/27/24 09/27/24 09/27/24 18:32 18:32 18:32 WBC 11.0 H K/mm3 (4.5-10.0) RBC 3.94 L M/mm3 (4.2-5.4) Hgb 11.4 L g/dL (12.0-15.0) Hct 34.2 L % (37.0-47.0) MCV 86.8 fl (80-100) MCH 28.9 pg (26-34) MCHC 33.3 g/dl (32-36) RDW 13.6 % (11.5-14.5) Plt Count 255 k/mm3 (150-375) MPV 9.5 fl (7.4-10.4) Immature Gran % (Auto) 0.5 % (0-0.5) Neut % (Auto) 70.6 % (45.5-73.1) Lymph % (Auto) 20.9 % (18.3-44.2) Jones % (Auto) 7.2 % (2.6-8.5) Eos % (Auto) 0.5 % (0-4.4) Baso % (Auto) 0.3 % (0.2-1.2) Lymph # (Auto) 2.29 K/mm3 (0.9-3.2) Jones # (Auto) 0.8 H K/mm3 (0.1-0.6) Eos # (Auto) 0.1 K/mm3 (0-0.3) Baso # (Auto) 0.0 K/mm3 (0.0-0.1) Abs Immat Gran (auto) 0.06 H K/mm3 (0.00-0.031) Absolute Neuts (auto) 7.7 H K/mm3 (1.3-6.7) Absolute Nucleated RBC 0.000 K/mm3 (0.0-0.012) Nucleated RBC % 0.0 % (0.0-0.2) Syphilis IgG/IgM Ab Negative (Negative) HIV 1&2 Ab/P24 Ag 4thGn Negative (Negative) Blood Type A Negative Antibody Screen Positive Antibody Identification Passive Due to RH Imm Glob Passive Due to RH Imm Glob Antigen Identification Cancelled RICK, IgG Interpret Not Performed RICK, Poly Interpret Neg Neg RICK, Complement Interp Not Performed Patient hx anesthesia problems: none Family hx anesthesia problems: none Results Review: All pre-operative results and documents have been reviewed as part of the pre- operative evaluation. [facility] Past Medical History Medical History Anal fissure History of vaginal delivery Overweight (BMI 25.0-29.9) Anxiety Depression Cardiac disorder Amputation of right great toe Surgical History Surgical History History of atrioventricular richardson ablation H/O cardiac radiofrequency ablation [place] teeth removed Family History Family History Grandparent Malignant neoplasm of prostate Family history of hypercholesterolemia Hypertension Father Hypertension Mother Hypertension Other Acute myocardial infarction Other Family history of malignant neoplasm of urinary bladder Other Family history of cardiac disorder Family history of pancreatic cancer Social History Social History (Reviewed 09/25/24 @ 08:15 by JENNIFER Colon Smoking status: Never smoker Second hand tobacco smoke exposure: No Alcohol intake: former Alcohol use details: Not since Substance use: never Do You Feel Safe in your Home?: Yes Lack of Transportation: No Lack of Food: Never True Current Housing: I Have Housing Concerned About Future Housing: No Difficulty Paying Gas/Electric Bills: No Difficulty Paying for Meds: No Currently Unemployed: No Education: Master's Degree or Higher Difficulty w/ Childcare or Family Care: No Spiritual care concerns: No Anes - Eval Final PreProcedure Day of Procedure 09/28/24 06:54 Patient weight: obese ASA classification: III Anesthetic plan: proceed Anesthesia type and monitoring: regional epidural and standard monitoring Results Review: All pre-operative results and documents have been reviewed as part of the pre- operative evaluation. Informed Consent: The patient's anesthetic plan and its attendant risks and benefits were discussed with the patient/family/POA. Questions were solicited and answers provided to the satisfaction of the patient/family/POA.
[2024-09-28] MEDS: OXYTOCIN 30 UNITS/NS 500 ML 30 UNITS/500 ML BAG 999 UNITS IV CONT (13:47)
[2024-09-28] MEDS: OXYTOCIN 30 UNITS/NS 500 ML 30 UNITS/500 ML BAG 125 UNITS IV CONT (14:29)
--- NOTE | 2024-09-28 14:33 | P.HP_ITS ---
H&P: HPI History of Present Illness Date/Time: 09/28/24 14:33 Chief Complaint: Induction of labor Narrative: Patient is a 34 y/o at 40 weeks admitted for [facility]. course significant for AMA. Review of Systems Review of Systems: All systems reviewed & are unremarkable except as noted in HPI and below Constitutional: Constitutional: Reports no additional constitutional complaints and Denies headache(s) Eyes: Eyes: Denies spots in vision ENT: Reports system reviewed and no additional complaints, except as documented and Denies headache(s) Cardiovascular: Cardiovascular: Denies chest pain and Denies dyspnea Respiratory: Respiratory: Denies dyspnea Gastrointestinal: Gastrointestinal: Reports no additional gastrointestinal complaints Genitourinary: Genitourinary: Reports amenorrhea Musculoskeletal: Musculoskeletal: Reports no additional musculoskeletal complaints Integumentary/Breasts: Skin/Breast: Denies breast mass and Denies rash Neurologic: Denies headache(s) Psychiatric: Psychiatric: Reports no additional psychiatric complaints PMFSH Past Medical History Medical History Anal fissure History of vaginal delivery Overweight (BMI 25.0-29.9) Anxiety Depression Cardiac disorder Amputation of right great toe Surgical History Surgical History History of atrioventricular richardson ablation H/O cardiac radiofrequency ablation [place] teeth removed Family History Family History Grandparent Malignant neoplasm of prostate Family history of hypercholesterolemia Hypertension Father Hypertension Mother Hypertension Other Acute myocardial infarction Other Family history of malignant neoplasm of urinary bladder Other Family history of cardiac disorder Family history of pancreatic cancer Social History Social History Smoking status: Never smoker Second hand tobacco smoke exposure: No Alcohol intake: former Alcohol use details: Not since Substance use: never Do You Feel Safe in your Home?: Yes Lack of Transportation: No Lack of Food: Never True Current Housing: I Have Housing Concerned About Future Housing: No Difficulty Paying Gas/Electric Bills: No Difficulty Paying for Meds: No Currently Unemployed: No Education: Master's Degree or Higher Difficulty w/ Childcare or Family Care: No Spiritual care concerns: No Meds Home Medications and Allergies Home Medications ?Medication ?Instructions ?Recorded ?Confirmed ?Type prenat.vits,jackie,[id number] 1 tablet PO HS 01/13/22 09/25/24 History citalopram 10 mg tablet 10 mg PO DAILY 07/01/23 09/25/24 History doxylamine succinate 25 mg tablet 25 mg PO QHS PRN sleep 02/19/24 09/25/24 History (Unisom (doxylamine)) aspirin 81 mg tablet,delayed 81 mg PO DAILY 05/19/24 09/25/24 History release docusate sodium 100 mg capsule 100 mg PO HS 08/29/24 09/25/24 History (Col-Rite) Allergies Allergy/AdvReac Type Severity Reaction Status Date / Time codeine Allergy Unknown Rash Verified 09/25/24 08:14 tramadol Allergy Unknown heard Verified 09/27/24 17:21 voices when taking Vital Signs Vital Signs - 24 hr 09/27/24 17:21 09/27/24 17:30 09/27/24 17:45 Temperature Pulse Rate 64 64 57 L Blood Pressure 137/84 129/79 134/76 Pulse Oximetry 09/27/24 18:00 09/27/24 18:16 09/27/24 18:30 Temperature Pulse Rate 61 67 73 Blood Pressure 133/79 123/77 95/77 L Pulse Oximetry 09/27/24 19:00 09/27/24 19:30 09/27/24 20:00 Temperature 98.4 F Pulse Rate 114 H 67 66 Blood Pressure 112/75 117/73 120/80 Pulse Oximetry 09/27/24 20:30 09/27/24 21:01 09/27/24 21:30 Temperature Pulse Rate 72 118 H 67 Blood Pressure 113/74 118/69 120/76 Pulse Oximetry 09/27/24 22:00 09/27/24 22:30 09/27/24 23:00 Temperature 98.5 F Pulse Rate 71 76 67 Blood Pressure 113/70 111/75 116/78 Pulse Oximetry 09/27/24 23:32 09/27/24 23:35 09/28/24 00:00 Temperature 97.3 F L Pulse Rate 127 H 59 L 60 Blood Pressure 97/37 L 117/73 111/73 Pulse Oximetry 09/28/24 00:30 09/28/24 01:00 09/28/24 01:30 Temperature Pulse Rate 54 L 64 64 Blood Pressure 96/50 L 108/71 113/63 Pulse Oximetry 09/28/24 02:00 09/28/24 02:30 09/28/24 03:00 Temperature 97.7 F Pulse Rate 62 63 Blood Pressure 108/74 113/74 Pulse Oximetry 09/28/24 03:02 09/28/24 03:30 09/28/24 04:00 Temperature Pulse Rate 58 L 57 L 62 Blood Pressure 103/39 L 102/58 L 111/71 Pulse Oximetry 09/28/24 04:30 09/28/24 05:00 09/28/24 05:30 Temperature 98.8 F Pulse Rate 56 L 59 L 61 Blood Pressure 88/56 L 104/71 118/73 Pulse Oximetry 09/28/24 06:00 09/28/24 06:30 09/28/24 06:56 Temperature Pulse Rate 62 53 L Blood Pressure 125/92 H 120/75 Pulse Oximetry 97 09/28/24 07:00 09/28/24 07:01 09/28/24 07:02 Temperature 97.3 F L Pulse Rate 64 56 L Blood Pressure 114/78 110/71 Pulse Oximetry 100 09/28/24 07:03 09/28/24 07:06 09/28/24 07:09 Temperature Pulse Rate 60 61 64 Blood Pressure 110/70 116/72 115/71 Pulse Oximetry 100 09/28/24 07:11 09/28/24 07:12 09/28/24 07:15 Temperature Pulse Rate 63 65 Blood Pressure 110/63 111/69 Pulse Oximetry 100 09/28/24 07:16 09/28/24 07:18 09/28/24 07:21 Temperature Pulse Rate 67 72 Blood Pressure 104/77 118/72 Pulse Oximetry 100 100 09/28/24 07:24 09/28/24 07:26 09/28/24 07:27 Temperature Pulse Rate 59 L 61 Blood Pressure 114/76 112/64 Pulse Oximetry 100 09/28/24 07:30 09/28/24 07:31 09/28/24 07:33 Temperature Pulse Rate 61 62 Blood Pressure 112/68 120/79 Pulse Oximetry 100 09/28/24 07:36 09/28/24 07:39 09/28/24 07:41 Temperature Pulse Rate 63 62 Blood Pressure 109/68 111/67 Pulse Oximetry 100 100 09/28/24 07:42 09/28/24 07:46 09/28/24 07:48 Temperature Pulse Rate 63 66 Blood Pressure 117/64 109/89 Pulse Oximetry 100 09/28/24 07:51 09/28/24 07:54 09/28/24 07:56 Temperature Pulse Rate 65 62 Blood Pressure 110/65 108/67 Pulse Oximetry 100 100 09/28/24 07:57 09/28/24 08:00 09/28/24 08:02 Temperature Pulse Rate 59 L 62 Blood Pressure 112/70 112/67 Pulse Oximetry 100 09/28/24 08:03 09/28/24 08:06 09/28/24 08:07 Temperature Pulse Rate 64 54 L Blood Pressure 110/74 96/58 L Pulse Oximetry 100 09/28/24 08:12 09/28/24 08:15 09/28/24 08:17 Temperature Pulse Rate 68 Blood Pressure 108/78 Pulse Oximetry 100 100 09/28/24 08:18 09/28/24 08:27 09/28/24 08:30 Temperature Pulse Rate 71 Blood Pressure 90/75 L Pulse Oximetry 95 100 09/28/24 08:45 09/28/24 09:00 09/28/24 09:15 Temperature Pulse Rate 62 60 62 Blood Pressure 108/72 111/72 102/79 Pulse Oximetry 09/28/24 09:30 09/28/24 09:37 09/28/24 09:45 Temperature Pulse Rate 57 L 54 L Blood Pressure 118/75 107/73 Pulse Oximetry 100 100 09/28/24 10:00 09/28/24 10:15 09/28/24 10:17 Temperature Pulse Rate 60 73 Blood Pressure 116/77 88/50 L Pulse Oximetry 98 09/28/24 10:20 09/28/24 10:25 09/28/24 10:30 Temperature Pulse Rate 57 L Blood Pressure 93/56 L Pulse Oximetry 100 100 100 09/28/24 10:35 09/28/24 10:36 09/28/24 10:41 Temperature Pulse Rate Blood Pressure Pulse Oximetry 100 98 100 09/28/24 10:45 09/28/24 10:46 09/28/24 10:47 Temperature Pulse Rate 66 Blood Pressure 142/57 H Pulse Oximetry 100 96 09/28/24 10:52 09/28/24 10:57 09/28/24 11:00 Temperature Pulse Rate 59 L Blood Pressure 110/68 Pulse Oximetry 95 100 09/28/24 11:02 09/28/24 11:05 09/28/24 11:10 Temperature Pulse Rate Blood Pressure Pulse Oximetry 99 98 100 09/28/24 11:15 09/28/24 11:20 09/28/24 11:25 Temperature Pulse Rate 78 Blood Pressure 113/88 Pulse Oximetry 100 100 100 09/28/24 11:30 09/28/24 11:35 09/28/24 11:40 Temperature Pulse Rate 52 L Blood Pressure 102/78 Pulse Oximetry 100 100 100 09/28/24 11:46 09/28/24 12:00 09/28/24 12:15 Temperature Pulse Rate 60 59 L 61 Blood Pressure 108/64 105/67 105/65 Pulse Oximetry 09/28/24 12:30 09/28/24 12:32 09/28/24 12:37 Temperature Pulse Rate 57 L Blood Pressure 107/64 Pulse Oximetry 100 100 09/28/24 12:42 09/28/24 12:45 09/28/24 12:47 Temperature Pulse Rate 55 L Blood Pressure 111/72 Pulse Oximetry 100 100 09/28/24 12:52 09/28/24 12:54 09/28/24 12:55 Temperature Pulse Rate Blood Pressure Pulse Oximetry 100 100 100 09/28/24 13:00 09/28/24 13:05 09/28/24 13:10 Temperature Pulse Rate 56 L Blood Pressure 117/72 Pulse Oximetry 100 100 100 09/28/24 13:15 09/28/24 13:20 09/28/24 13:25 Temperature Pulse Rate 72 Blood Pressure 111/85 Pulse Oximetry 100 100 100 09/28/24 13:29 09/28/24 13:34 09/28/24 13:39 Temperature Pulse Rate Blood Pressure Pulse Oximetry 100 100 100 09/28/24 13:41 09/28/24 13:41 09/28/24 13:42 Temperature Pulse Rate Blood Pressure Pulse Oximetry 99 100 100 09/28/24 13:45 09/28/24 13:47 09/28/24 13:59 Temperature 97.3 F L Pulse Rate 81 Blood Pressure 119/68 Pulse Oximetry 100 09/28/24 14:01 09/28/24 14:15 09/28/24 14:30 Temperature Pulse Rate 73 62 51 L Blood Pressure 98/44 L 96/58 L 101/60 Pulse Oximetry Exam Const: General: no acute distress Eyes: General: appearance normal, both eyes and all related structures Resp: Effort & Inspection: normal respiratory effort Cardio: Rate: regular rate GI: Other: Gravid no fundal tenderness no right upper quadrant pain Skin: General skin exam: no rashes or lesions noted Neuro: Cognition (Neuro): normal cognition Extrem: General: normal to inspection Psych: Mental Status: mental status grossly normal H&P: Results Labs Labs: Short CBC 09/27/24 Range/Units 18:32 WBC 11.0 H (4.5-10.0) K/mm3 Hgb 11.4 L (12.0-15.0) g/dL Hct 34.2 L (37.0-47.0) % Plt Count 255 (150-375) k/mm3 Assessment and Plan Assessment and plan (1) Elective induction of labor planned: Status: Acute Assessment and Plan: 1. Admit. She has been counseled regarding risk benefit of induction of labor vs spontaneous labor and has opted for induction of labor. 2. Cervidil induction.
--- NOTE | 2024-09-28 14:34 | P.PCNOB_ITS ---
OB - Vaginal Delivery Note Procedure Delivery date: 09/28/24 Events: Other (advanced maternal age) Intrapartal Events: Decelerations Induction method: Per Misoprostol Protocol Delivery monitor: External FHT Route of delivery: other (attempted vacuum) Indication for instrumentation: nonreassuring FHR tracing Episiotomy description: Midline Quantitative Blood Loss (ml): 200 Anesthesia type: Epidural Disposition: Floor Complications: No immediate complications Narrative: She was admitted for MIL. She received 3 doses of cytotec and had SROM at approximately 0530. She had epidural placed on request and she progressed to active labor. She continued to progress to complete. Second stage of labor significant for severe decelerations and then bradycardia to 50s. She was counseled regarding recommendation and risk benefit of vacuum and or forceps delivery and risk of each versus section. She agreed to vacuum. Vacuum applied and with two contractions. After two contractions it did not descend much and vacuum came off. She was then informed of recommendation for forceps or section, recommend forceps, she agree. Louis Mcclane forceps were inserted and repalpated and were removed and placed and articulated well. Midline episiotomy performed. She pushed twice and delivered female in OP presentation. Placed on abdomen. Peds available. Terminal meconium noted. Long cord doubly clamped and cut. Cord gases and cord blood obtained. Pitocin started. Placenta delivered spontaneously and intact. Episiotomy repaired with 2.0 and 3.0 vicryl. Small extension on the skin near hemorrhoid approximated with 3.0 vicryl. [place] Baby Date of : 09/28/24 Time of : 13:41 Gestational Age by Date: 40 Weight (pounds): 7 Weight (ounces): 3 presentation: vertex position: Other (OP) Placenta delivery description: Spontaneous Cord Vessel Description: Nuchal Cord (x1), Loose and Reduced (manually) score one minute: 3 score five minutes: 7 score ten minutes: 9
[2024-09-28] MEDS: ACETAMINOPHEN 325 MG TABLET 650 MG PO (19:57)
[2024-09-28] MEDS: IBUPROFEN 600 MG TABLET PO (19:58)
--- NOTE | 2024-09-28 20:27 | PC.NURSE ---
1944- This RN assisted pt to restroom via [employer]. PT voided, pericare complete. Pt aware to call for assistance when needing to toilet next.
[2024-09-29 01:45] VITALS: BP 106/57; PULSE 62; RESP 16; TEMP 36.9; O2SAT 97
[2024-09-29] MEDS: IBUPROFEN 600 MG TABLET PO ×4 (01:46→20:37)
[2024-09-29] MEDS: ACETAMINOPHEN 325 MG TABLET 650 MG PO ×4 (01:46→20:36)
[2024-09-29 06:00] LABS: Hematocrit 30.5 % (37.0-47.0); Hemoglobin 9.7 g/dL (12.0-15.0)
[2024-09-29 07:50] VITALS: BP 106/67; PULSE 63; RESP 16; TEMP 36.6; O2SAT 98
[2024-09-29] MEDS: DOCUSATE SODIUM 100 MG CAPSULE PO ×2 (08:03→16:20)
[2024-09-29] MEDS: MULTIVIT/MIN/PREN/FOL AC/IRON TABLET 1 TAB PO (08:03)
[2024-09-29] MEDS: POLYSACCHARIDE IRON COMPLEX 150 MG CAPSULE PO ×2 (08:05→16:20)
--- NOTE | 2024-09-29 08:26 | P.PNOB_ITS ---
OB - PN: Subj Subjective Date/time seen: 09/29/24 08:26 Patient comments: pain well controlled, tolerating diet and other (Decreasing lochia.) baby status: doing well and nursing well OB - PN: Obj Data Labs 09/29/24 05:46 Labs: Laboratory Results - last 24 hr 09/29/24 05:46 Hgb 9.7 L Hct 30.5 L OB - PN A/P Plan day: 1 Plan: routine care Comments: Patient doing well. Time Spent With Patient Time: Total time spent is greater than 50% in coordination of care (as documented) at patient's floor/unit and/or counseling patient: Exam 2 Psych: Affect: normal affect Other: Abd: fundus firm below umbilicus, nontender Perineum: healing Ext: nontender
--- NOTE | 2024-09-29 10:34 | WPDANLDPN2 ---
Anes-Prog Note L&D Date/Time: 09/29/24 10:34 Comfortable throughout: labor and delivery Neuraxial method: epidural Epidural/Spinal procedure site: clean & non-tender Neuro status: Neuro function grossly intact. Cardiovascular status: normal Respiratory status: normal Airway patency: baseline Mental status: baseline Post-Op hydration status: normal Vital Signs: Last Vital Signs Temp 97.8 F 09/29/24 07:50 Pulse 63 09/29/24 07:50 Resp 16 09/29/24 07:50 BP 106/67 09/29/24 07:50 Pulse Ox 98 09/29/24 07:50 O2 Del Method Room Air 09/28/24 22:00 Pain score (VAS): 0/10 I/O: Intake & Output 09/28/24 09/29/24 09/29/24 23:59 07:59 15:59 Intake Total 1600 Output Total 100 Balance -100 1600 Post-procedural complaints: none Patient feedback: Patient satisfied with anesthetic care.
[2024-09-29 12:32] VITALS: BP 112/63; PULSE 62; RESP 18; TEMP 36.6; O2SAT 98
[2024-09-29] MEDS: WITCH HAZEL 40 PADS 1 PAD TOPICAL (16:24)
[2024-09-29 20:41] VITALS: BP 109/66; PULSE 77; RESP 16; TEMP 36.6; O2SAT 100; O2SAT 97
[2024-09-30] MEDS: DOCUSATE SODIUM 100 MG CAPSULE PO (08:03)
[2024-09-30] MEDS: IBUPROFEN 600 MG TABLET PO (08:03)
[2024-09-30] MEDS: POLYSACCHARIDE IRON COMPLEX 150 MG CAPSULE PO (08:03)
[2024-09-30] MEDS: MULTIVIT/MIN/PREN/FOL AC/IRON TABLET 1 TAB PO (08:03)
[2024-09-30] MEDS: ACETAMINOPHEN 325 MG TABLET 650 MG PO (08:04)
[2024-09-30 08:05] VITALS: BP 121/75; PULSE 71; RESP 16; TEMP 36.7; O2SAT 99
--- NOTE | 2024-09-30 08:30 | PC.NURSE ---
Reviewed standard discharge information with patient including monitoring for required output, transition of stools, feeding 8-12 times every 24 hours, milk production, and follow up at [facility] and with post splitter in the first week of life. Parents are encouraged to take the feeding log and continue to track feedings and output for the first week . Offered outpatient resources with [facility] referral and Services at [facility]. Patient has the Mom/Baby Guide for further education and reference for common concerns, phone numbers, and guidance on when to call the doctor. A feeding plan was added to the infant?s discharge plan. Patient states that she has no further questions or concerns regarding . ?
--- NOTE | 2024-09-30 12:24 | PM.OBDSVD ---
DS: Admitting Diagnosis Discharge Date September 30, 2024 Admitting Diagnosis induction of labor DS: Discharge Diagnosis Discharge Diagnosis (1) Vaginal delivery: Code(s): O80 - Encounter for full-term uncomplicated delivery Status: Acute OB - DS: Summary Hospital Course Hospital Course: she was admitted for medical induction of labor. She had Cytotec. She had spontaneous rupture of membranes and progressed into labor she had a vaginal forceps delivery. She did well . she had adequate pain control was tolerating regular diet ambulating well and . Baby was doing well. She was discharged home on day 2. OB Procedures : Ultrasound OB Procedures Intrapartum: Forceps OB Procedures: : None Peripartum Data Infant Delivery Method: Natural Vaginal Episiotomy description: Midline complications: none Status at Discharge Functional status at discharge: independent ambulation Time Spent with Patient Time attestation: Total time spent providing and/or coordinating discharge services: Exam Const: General: cooperative Orientation/consciousness: oriented to person, oriented to place and oriented to time HENMT: Face/Nose/Sinus: Normal external nose present Eyes: General: appearance normal, both eyes and all related structures Resp: Effort & Inspection: normal respiratory effort GI: Inspection: normal to inspection Skin: General skin exam: normal color Neuro: General: oriented to person, oriented to place and oriented to time Extrem: General: normal to inspection and no calf tenderness Psych: Appearance: grossly normal Mental Status: mental status grossly normal DS: Data Data Completed and Pending Completed studies during hospitalization: Pending at discharge 09/28/24 13:47 Surgical [PTH] Routine Discharge Plan Discharge Attending physician on discharge: Pepe Oates Consulting providers: Tom Blackwell Discharging Clinician: Pepe Oates Anticipated Discharge Date/Time: 09/30/24 07:37 Patient Disposition: Home Activity: may shower, no straining and pelvic rest Diet: regular Discharge Instructions: Education: Mom and Baby Guide Given to: Mother Follow-Up: Call your delivering provider's office for an appointment to be seen in: 4 Weeks Mom and baby should come to the [facility] for the follow-up appointment. Appointment Date/Time: October 01, 2024 at 10:00 am What to expect at your follow-up visit: Blood Pressure Check Physical Assessment Call [phone] if you are unable to keep your appointment time. BREAST CARE: * Wear a snug supportive bra. * For engorgement discomfort: Breast Feeding: * Apply warm moist washcloths * Express milk as needed to relieve engorgement * Wear loose clothing Bottle Feeding: * May apply ice packs * For sore nipples: * Identify correct latch-on * Apply warm moist washcloths before and after nursing * Air dry nipples after nursing * May apply Lansinoh cream to nipples ABDOMINAL INCISION: (if applicable) * Allow incision to air dry * Do NOT use lotions for powders on your incision * When showering, allow soap and water to run over the incision, but do not wash incision EPISIOTOMY/PERINEAL CARE: * Until bleeding stops, use your winston bottle after urinating * Change your pad frequently throughout the day * You may take sitz baths several times a day (fill your bathtub with warm water and soak for 20 minutes.) Do NOT bathe in the water * No tub baths until seen by your physician - You may shower ACTIVITY: * Rest as much as possible. * Do not exercise or lift anything heavier than your baby (such as laundry or other children.) * Do not put anything into the vagina. No douching, tampons, or sexual activity until seen by physician. NOTIFY PHYSICIAN IF YOU HAVE ANY QUESTIONS OR IF ANY OF THE FOLLOWING SYMPTOMS OCCUR: * If your episiotomy or incision becomes red, swollen, or more painful than what you have experienced in the hospital. * If your vaginal bleeding becomes foul smelling. * If your vaginal bleeding becomes more heavy than a period or if your bleeding changes from pink to bright red. However, you may pass an occasional walnut-sized clot once or twice for the first week . * If you experience a sharp, shooting pain in you calves. * If you discover a hard, reddened area on your breast or if you experience flu-like symptoms. DIET: * Eat regular, well-balanced meals. * Drink plenty of fluids daily. If , drink to thirst. Patient Language: Vietnamese Stand Alone Forms: General Discharge Information Follow-up/Referrals: Pepe Oates MD [Physician] - Call for Appointment Discharge Medications: Continued citalopram 10 mg tablet 10 mg PO DAILY docusate sodium [Col-Rite] 100 mg capsule 100 mg PO HS prenat.vits,jackie,[id number] Tablet 1 tablet PO HS Discontinued Unisom (doxylamine) 25 mg tablet 25 mg PO QHS PRN (Reason: sleep) aspirin 81 mg tablet,delayed release (DR/EC) 81 mg PO DAILY Date of admission: 09/27/24 17:03 Primary Care Provider: Amber Styles Admitting Provider: Pepe Oates Attending physician on admission: Pepe Oates Condition: Stable
[2024-10-01 10:30] VITALS: BP 108/91; PULSE 71; RESP 18; TEMP 37.1; O2SAT 100
== END 2024-09-30 11:40 | disposition home or self-care (01) | DRG 807 ==
LOC: ANHLDR 17:06 → ANHOB2 09-28 18:04
PROVIDERS: Admitting Provider Obstetrics & Gynecology; Visit Provider Obstetrics & Gynecology
DX: O69.81X0 Labor and delivery complicated by cord around neck, without compression, not applicable or unspecified (principal); Z37.0 Single live birth; Z3A.40 40 weeks gestation of pregnancy; O36.8330 Maternal care for abnormalities of the fetal heart rate or rhythm, third trimester, not applicable or unspecified
CPT/HCPCS: 36415; 85014; 85018; 85025; 86593; 86703; 86850; 86880; 86900; 86901; 88307; A9270; G0432; J2590; J2795; J7120

== ENCOUNTER 2024-10-23 16:46 | Emergency (ER) | payer OTHER, SELFPAY ==
[2024-10-23 17:14] VITALS: BP 132/77; PULSE 67; RESP 16; TEMP 36.8; O2SAT 99
--- NOTE | 2024-10-23 17:19 | ED_ITS ---
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 She reports she has been having some pain in the area, so she attempted to look with a mirror and noticed ?two holes. Patient reports she had a vaginal delivery with forceps and a vacuum and a 2nd degree tear. She denies any purulence or discharge. Patient reports she continues to have slight vaginal bleeding following delivery. She denies any fevers, abdominal pain, or back pain. GENERAL: Well-appearing, well-nourished, and in no acute distress. HEAD: Normocephalic, atraumatic. CHEST: Clear to auscultation. ?No respiratory distress. HEART: Regular rate and rhythm.? NEURO: ?Alert and oriented x3. Patient screened in triage and initial orders placed.? ?Additional care and disposition to be based upon?diagnostic testing and treatment. <Li Meza APRN - Last Filed: 10/23/24 17:24> History of Present Illness HPI Narrative: Agree with the above triage note. Patient to [facility] on 09/28/2024 via vaginal delivery, underwent episiotomy. Had sutures placed. Yesterday felt a suture pop out, looked in the mirror today and noticed 2 holes and wanted to get checked out. She denies any drainage or significant pain. Is endorsing expe cted light vaginal bleeding and discomfort to the region. She denies abdominal pain, fever, vomiting. States she had her incision checked last week by her OBGYN team and was told everything was ?okay?. <Angelica Wylie PA-C - Last Filed: 10/23/24 18:52> Related Data Home medications: Home Medications ?Medication ?Instructions ?Recorded ?Confirmed ?Last Taken ?Type prenat.vits,jackie,rfz-ehgy-fjzsn 1 tablet PO HS 01/13/22 10/15/24 08/28/24 History citalopram 10 mg tablet 10 mg PO DAILY 07/01/23 10/15/24 08/28/24 History docusate sodium 100 mg capsule 100 mg PO HS 08/29/24 10/15/24 08/28/24 History (Col-Rite) ferrous sulfate 325 mg (65 mg 325 mg PO DAILY 10/15/24 10/15/24 Unknown History iron) tablet (Iron (ferrous sulfate)) <Li Meza APRN - Last Filed: 10/23/24 17:24> Allergies/Adverse reactions: Allergies Allergy/AdvReac Type Severity Reaction Status Date / Time codeine Allergy Unknown Rash Verified 10/23/24 16:47 tramadol Allergy Unknown heard Verified 10/23/24 16:47 voices when taking <Li Meza APRN - Last Filed: 10/23/24 17:24> Review of Systems Review of Systems: All systems reviewed & are unremarkable except as noted in HPI and below <Angelica Wylie PA-C - Last Filed: 10/23/24 18:52> [facility] Past Medical History Medical History: Medical History Anal fissure History of vaginal delivery Overweight (BMI 25.0-29.9) Anxiety Depression Cardiac disorder Amputation of right great toe <Li Meza APRN - Last Filed: 10/23/24 17:24> Surgical History Surgical History: Surgical History History of atrioventricular richardson ablation H/O cardiac radiofrequency ablation [place] teeth removed <Li Meza APRN - Last Filed: 10/23/24 17:24> Family History Family History: Family History Grandparent Malignant neoplasm of prostate Family history of hypercholesterolemia Hypertension Father Hypertension Mother Hypertension Other Acute myocardial infarction Other Family history of malignant neoplasm of urinary bladder Other Family history of cardiac disorder Family history of pancreatic cancer <Li Meza APRN - Last Filed: 10/23/24 17:24> Social History Social History: Social History Smoking status: Never smoker Second hand tobacco smoke exposure: No Alcohol intake: former Alcohol use details: Not since Substance use: never Do You Feel Safe in your Home?: Yes Lack of Transportation: No Lack of Food: Never True Current Housing: I Have Housing Concerned About Future Housing: No Difficulty Paying Gas/Electric Bills: No Difficulty Paying for Meds: No Currently Unemployed: No Education: Master's Degree or Higher Difficulty w/ Childcare or Family Care: No Spiritual care concerns: No <Li Meza APRN - Last Filed: 10/23/24 17:24> Exam Narrative: GENERAL: Well-appearing, well-nourished, and in no acute distress. HEAD: Normocephalic, atraumatic. EYES: EOMI. ENT: Nares clear, no rhinorrhea or epistaxis. Mucous membranes moist. NECK: Supple. CHEST: Clear to auscultation. No respiratory distress. HEART: Regular rate and rhythm. No murmur heard. Normal peripheral pulses. ABDOMEN: Soft, nontender, nondistended, normal active bowel sounds. 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 There are 2 very small gaps in sutures just above hemorrhoid but wound does not appear to be dehisced. Induration with scant purulence and tenderness noted to most proximal gap with no surrounding erythema or warmth. No hemorrhaging or bleeding EXTREMITIES: Normal range of motion. No edema. SKIN: Warm, dry, no rash. NEURO: No focal deficits. Alert and oriented x3 <Angelica Wylie PA-C - Last Filed: 10/23/24 18:52> Course Vital Signs Vital signs: Vital Signs Temperature 98.2 F 10/23/24 17:14 Pulse Rate 67 10/23/24 17:14 Respiratory Rate 16 10/23/24 17:14 Blood Pressure 132/77 10/23/24 17:14 Pulse Oximetry 99 10/23/24 17:14 Temperature 98.2 F 10/23/24 17:14 Pulse Rate 67 10/23/24 17:14 Respiratory Rate 16 10/23/24 17:14 Blood Pressure 132/77 10/23/24 17:14 Pulse Oximetry 99 10/23/24 17:14 <Li Meza APRN - Last Filed: 10/23/24 17:24> Vital Signs Temperature 98.2 F 10/23/24 17:14 Pulse Rate 67 10/23/24 17:14 Respiratory Rate 16 10/23/24 17:14 Blood Pressure 132/77 10/23/24 17:14 Pulse Oximetry 99 10/23/24 17:14 Temperature 98.2 F 10/23/24 17:14 Pulse Rate 67 10/23/24 17:14 Respiratory Rate 16 10/23/24 17:14 Blood Pressure 132/77 10/23/24 17:14 Pulse Oximetry 99 10/23/24 17:14 <Angelica Wylie PA-C - Last Filed: 10/23/24 18:52> MDM - Female Genitourinary MDM Narrative Medical decision making narrative: 34-year-old female who had a vaginal delivery with episiotomy on 09/28/24 presents to the ED after feeling a suture ?pop? yesterday noticing ?2 holes? today to her episiotomy incision. Triage vitals are stable. Patient is afebrile and nontoxic appearing. Exam is notable for the above. Shared decision making regarding workup today. Given area of induration and scant purulence, I did discuss possibility of fistula or abscess. Offered to obtain lab work and CT scan for further evaluation of this however patient politely declined. I did consult Dr. River (on-call for Dr. Oates), who agrees to start the patient on Keflex and Flagyl (agrees these are safe in ), and to have the follow up on Saturday outpatient. Patient was advised to continue bottle irrigation. Discussed strict ED return precautions. She is agreeable with the plan verbalized understanding. Discharged in stable condition. <Angelica Wylie PA-C - Last Filed: 10/23/24 18:52> Discharge Plan Discharge Clinical Impression: Infected episiotomy <Li Meza APRN - Last Filed: 10/23/24 17:24> Patient Disposition: Home <Li Meza APRN - Last Filed: 10/23/24 17:24> Condition: Stable <Li Meza APRN - Last Filed: 10/23/24 17:24> Instructions: Antibiotic Form, Episiotomy (DC) <Li Meza APRN - Last Filed: 10/23/24 17:24> Additional Instructions: Please take the antibiotics as directed. Please continue irrigating her trapezii any incision and using your at-home remedies. Please follow-up closely with Dr. Rodriguez's office. Return to the emergency department if you develop a fever, drainage, abdominal pain or other concerning symptoms. <Li Meza APRN - Last Filed: 10/23/24 17:24> Patient Language: German <Li Meza APRN - Last Filed: 10/23/24 17:24> Prescriptions: New metronidazole 500 mg tablet 500 mg PO Q12H Qty: 14 0RF cephalexin 500 mg capsule 500 mg PO Q6H Qty: 28 0RF No Action citalopram 10 mg tablet 10 mg PO DAILY ferrous sulfate [Iron (ferrous sulfate)] 325 mg (65 mg iron) tablet 325 mg PO DAILY docusate sodium [Col-Rite] 100 mg capsule 100 mg PO HS prenat.vits,jackie,[id number]-[id number] Tablet 1 tablet PO HS <Li Meza APRN - Last Filed: 10/23/24 17:24> Follow-up/Referrals: Amber Styles RN [Primary Care Provider] - Pepe Oates MD [Physician] - <Li Meza APRN - Last Filed: 10/23/24 17:24>
--- OUTSIDE RECORDS SUMMARY | 2024-10-24 14:58 | XMS_ITS | Clinical Summary ---
Author Organization [facility] Address [address] [place] [address] Phone Care Team Providers Care Circular Head Saw Operator Name Role Phone Unavailable Primary Care Provider Unavailabl e Encounters Date Type Department Care Team Description 10/06/2024 External Device Data STL ABSTRACTION Provider, Abstract 09/09/2024 External Device Data STL ABSTRACTION Provider, Abstract 09/09/2024 External Device Data STL ABSTRACTION Provider, Abstract 09/07/2024 2:55 PM CDT - 09/07/2024 11:59 PM CDT Hospital Encounter [facility] [address] [place] [phone] Pepe Lino MD Discharge Disposition: Home or Self Care 08/29/2024 External Device Data STL ABSTRACTION Provider, Abstract 08/28/2024 External Device Data STL ABSTRACTION Provider, Abstract 08/25/2024 External Device Data STL ABSTRACTION Provider, Abstract 08/11/2024 External Device Data STL ABSTRACTION Provider, Abstract 08/03/2024 8:14 AM FOUR 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 - 08/03/2024 11:59 PM FOUR 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 Hospital Encounter [facility] Brant Tapia [address] [place] [phone] Pepe Lino MD Discharge Disposition: Home or Self Care from Last 3 Months Social History Tobacco Use Types Packs/Day Years Used Date Smoking Tobacco: Never Assessed Comments Unknown Sex and Gender Information Value Date Recorded Sex Assigned at Not on file Legal Sex Female 9:08 AM FOUR 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 Gender Identity Not on file Sexual Orientation Not on file Plan of Treatment Health Maintenance Due Date Last Done Comments HEPATITIS B VACCINES (1 of 3 - 19+ 3-dose series) 2008 HPV/Cotest (21-29) 2010 CERVICAL CANCER SCREENING 2019 HPV/Cotest (30-65) 2019 PAP SMEAR 2019 INFLUENZA VACCINE (#1) 2024 2, 07/28/2021 DTAP/TDAP/TD VACCINES (2 - Td or Tdap) 01/10/2032 01/09/2022 HPV VACCINES Aged Out No longer eligi ble based on patient's age to complete this topic Procedures Procedure Name Priority Date/Time Associated Diagnosis Comments US OB LTD 1 OR MORE FETUSES Routine 09/07/2024 3:29 PM CDT History of decreased amniotic fluid in prior , currently US OB FOLLOW UP PER FETUS Routine 08/03/2024 8:35 AM FOUR 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 Encounter for ultrasound to assess growth from Last 3 Months Results * US OB LTD 1 OR MORE FETUSES (09/07/2024 3:29 PM CDT) Anatomical Region Laterality Modality Pelvis Ultrasound 09/07/2024 2:57 PM CDT Narrative 09/07/2024 3:20 PM CDT STL LIMITED ----- Pat. Name: BUNNY BARBER Study Date: 09/07/2024 2:57pm Pat. NO: [id number] Referring MD: PEPE LINO MD Site: [place] Maker: Malaika Monae RDMS : 1990 Age: 34 ----- INDICATION ----- Advanced Maternal Age (AMA), Multigravida Screening Follow-Up CODING ----- Diagnoses Z3A.37: Weeks of gestation O09.523: Supervision of elderly multigravida Z36.2: Encounter for other screening follow-up Procedures [id number]: Ultrasound, uterus, real time with image documentation, [...] and date of were verified by the hogshead liner prior to the exam. IMPRESSION ----- 1. [...] Pat. Name:Ebony BARBER Date:09/07/2024 2:57pm Pat. NO: [id number] MD:PEPE LINO [facility] RD[facility] :1990Age:34 ----- INDICATION ----- Advanced Maternal Age (AMA), Multigravida Screening Follow-Up CODING ----- Diagnoses Z3A.37: Weeks of gestation O09.523: Supervision of elderly multigravida Z36.2: Encounter for other screeningfollow-up Procedures 36532: Ultrasound, uterus, real time withimage documentation, limited one or more fetuses HISTORY ----- OB History 2. Para 1 T1L1 METHOD ----- Transabdominal ultrasound examination ----- Stock . Number of fetuses: 1 DATING ----- LMP on:12/23/2023 GA by [email or web address] w + 0 d IKE by LMP:09/28/2024 GA by prior [email or web address] w + 0 d IKE by prior [...] and date of were verified by the hogshead liner prior tothe exam. IMPRESSION ----- 1. Stock living fetus with a gestational age of 37w 0d, based on thereported clinical dates. 2. Fetus is cephalic. 3. Amniotic fluid volume is normal for gestational age (MVP:5.6 cmAFI:13.1 cm). Recommendations: - Follow up as clinically indicated. Thank you for allowing us to participate in the care of this patient. us Peep Lino MD US ORDERABLES Final Result * US OB FOLLOW UP PER FETUS (08/03/2024 8:35 AM FOUR 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) Anatomical Region Laterality Modality Pelvis Ultrasound 08/03/2024 8:15 AM FOUR 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 Narrative 08/03/2024 8:48 AM FOUR 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 STL FOLLOW UP ----- Pat. Name: BUNNY BARBER Study Date: 08/03/2024 8:15am Pat. NO: [id number] Referring MD: PEPE LINO MD Site: [place] Maker: Malaika Monae RDMS : 1990 Age: 34 ----- INDICATION ----- Advanced Maternal Age (AMA), Multigravida Screening Follow-Up CODING ----- Diagnoses Z3A.32: Weeks of gestation O09.523: Supervision of elderly multigravida Z36.2: Encounter for other screening follow-up Procedures 28120: Ultrasound, uterus, real time with image documentation, [...] 4 lb 9 oz EFW by Hadlock ([id number]) Head / Face / Neck Biometry: Fuel Assembler 6.1 mm Extremities / Bony Struc Biometry: [...] and date of were verified by the hogshead liner prior to the exam IMPRESSION ----- 1. [...] Pat. Name:Ebony BARBER Date:08/03/2024 8:15am Pat. NO: [id number] MD:PEPE LINO MD [facility]ala[facility] Monae RDMS :1990Age:34 ----- INDICATION ----- Advanced Maternal Age (AMA), Multigravida Screening Follow-Up CODING ----- Diagnoses Z3A.32: Weeks of gestation O09.523: Supervision of elderly multigravida Z36.2: Encounter for other screeningfollow-up Procedures 77281: Ultrasound, uterus, real time withimage documentation, follow up, transabdominal approach per fetus HISTORY ----- OB History 2. Para 1 T1L1 METHOD ----- Transabdominal ultrasound examination ----- Stock . Number of fetuses: 1 DATING ----- LMP on:12/23/2023 GA by [email or web address] w + 0 d IKE by LMP:09/28/2024 GA by prior [email or web address] w + 0 d IKE by prior [...] 4 lb 9 oz EFW by Hadlock ([id number]) Head / Face / Neck Biometry: Fuel Assembler 6.1mm Extremities / Bony Struc Biometry: FL [...] and date of were verified by the hogshead liner prior tothe exam IMPRESSION ----- 1. Single [...]
--- OUTSIDE RECORDS SUMMARY | 2024-10-24 14:58 | XMS_ITS | Referral Summary ---
Author Organization [facility] Address [address] [place] [phone] Care Team Providers Care User Support Specialist Name Role Phone Ashley Obrien MD Primary Care Provider [phone] Kandice Valencia Unavailable [phone] Allergies Active Allergy Reactions Criticality Noted Date [...] Comments Blood Pressure 127/83 06/26/2022 3:29 PM SCRAP BREAKER Pulse 94 06/26/2022 3:29 PM SCRAP BREAKER Temperature 37.8 C (100 F) 05/18/2022 5:21 PM SCRAP BREAKER Respiratory Rate 16 05/18/2022 5:21 PM SCRAP BREAKER Oxygen Saturation 95% 05/18/2022 5:21 PM SCRAP BREAKER Inhaled Oxygen Concentration - - Weight 66.3 kg (146 lb 3.2 oz) 06/26/2022 3:29 P M SCRAP BREAKER Height 167.6 cm (5' 6 ) 06/26/2022 3:29 PM SCRAP BREAKER Body Mass Index 23.6 06/26/2022 3:29 PM SCRAP BREAKER Plan of Treatment Not on file Insurance [facility] Address: [address] [facility] [address] [place] [address] [facility]/PPO Address: [address] [address] [place] [address] Care Teams User Support Specialist Relationship Specialty Start Date End Date Ashley Obrien MD [address] [place] [address] PCP - General Obstetrics and Gynecology 03/14/22 Kandice Valencia PA [address] [place] [phone] [place] [address] Physician Orchestra Leader Colon and Rectal Surgery 06/26/22
--- OUTSIDE RECORDS SUMMARY | 2024-10-24 14:58 | XMS_ITS | Clinical Summary ---
Author Organization [facility] Address [address] [place] [phone] Care Team Providers Care Drafter Mechanical Name Role Phone Ashley Obrien MD Primary Care Provider [phone] Kandice Valencia Unavailable [phone] Allergies Active Allergy Reactions Criticality Noted Date [...] Comments Blood Pressure 127/83 06/26/2022 3:29 PM BOWLING ALLEY ATTENDANT Pulse 94 06/26/2022 3:29 PM BOWLING ALLEY ATTENDANT Temperature 37.8 C (100 F) 05/18/2022 5:21 PM BOWLING ALLEY ATTENDANT Respiratory Rate 16 05/18/2022 5:21 PM BOWLING ALLEY ATTENDANT Oxygen Saturation 95% 05/18/2022 5:21 PM BOWLING ALLEY ATTENDANT Inhaled Oxygen Concentration - - Weight 66.3 kg (146 lb 3.2 oz) 06/26/2022 3:29 P M BOWLING ALLEY ATTENDANT Height 167.6 cm (5' 6 ) 06/26/2022 3:29 PM BOWLING ALLEY ATTENDANT Body Mass Index 23.6 06/26/2022 3:29 PM BOWLING ALLEY ATTENDANT Plan of Treatment Health Maintenance Due Date [...] patient's age to complete this topic Insurance [facility] Care Teams Drafter Mechanical Relationship Specialty Start Date End Date Ashley Obrien MD [address] [place] [address] PCP - General Obstetrics and Gynecology 03/14/22 Kandice Valencia PA [address] [place] [phone] [place] [address] Physician Can Piler Colon and Rectal Surgery 06/26/22
--- OUTSIDE RECORDS SUMMARY | 2024-10-24 14:58 | XMS_ITS | Clinical Summary ---
Author Organization [facility] Address [address] [place] [address] Phone Care Team Providers Care Field Service Technician Poultry Name Role Phone Natalia Guerra APRN, TABLE TOP TILE SETTER Unavailable [phone] Amber Styles UNDERGRADUATE INTERNSHIP, TABLE TOP TILE SETTER Primary Care Provider + Allergies Active Allergy Reactions Criticality Noted Date Comments Codeine Rash Medium 05/09/2022 Medications Vit-Fe Fumarate-FA ( VITAMIN PO) Take by mouth. Active Polyethylene Glycol 3350 (MIRALAX PO) Take by mouth. Active citalopram (CeleXA) 10 MG TabletIndication s:Anxiety TAKE 1 TABLET BY MOUTH EVERY DAY 90 Tablet 09/10/2024 Active Active Problems No known active problems Encounters Date Type Department Care Team Description 09/10/2024 Refill [facility] [address] [place] [address] Amber Styles, UNDERGRADUATE INTERNSHIP, TABLE TOP TILE SETTER Medication Refill from Last 3 Months Immunizations [...] often do you attend chur ch or muslim services? Never 12/17/2023 Do you belong to any clubs o r organizations such as nondenominational groups, unions, fraternal or athletic groups, or [...] Total Score - Questions 1-9 0 01/24 [facility] Occupat ional Health - Occupational Stress [...] any time in the past 12 m [facility], were you homeless or living in a half-way (including now)? No 12/17/2023 Education Answer Date Recorded What is the highest level of school you have completed or the highest degree you have received? 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 Gender Identity Not on file Sexual Orientation [...] CDT Office Visit [facility] [address] [place] [address] Amber Styles, UNDERGRADUATE INTERNSHIP, TABLE TOP TILE SETTER [address] [place] [address] Health Maintenance Due Date Last Done Comments [...] Procedure Name Priority Date/Time Associated Diagnosis Comments OBG GYNE PROCEDURE 09/28/2024 12:00 AM CDT from Last 3 Months Results * OBG GYNE PROCEDURE (09/28/2024 12:00 AM CDT) 09/28/2024 us Provider Scan GEN ORDERS Final Result SCAN from Last 3 Months Insurance [facility] Care Teams Field Service Technician Poultry Relationship Specialty Start Date End Date Amber Styles APRN, TABLE TOP TILE SETTER [address] [place] [address] PCP - General Advanced Practice Nurse 12/18/23 Natalia Guerra APRN, TABLE TOP TILE SETTER Gastroenterology 06/07/22
== END 2024-10-23 18:42 | disposition home or self-care (01) ==
PROVIDERS: Emergency Provider Physician Assistant
DX: O86.09 Infection of obstetric surgical wound, other surgical site (principal); O99.345 Other mental disorders complicating the puerperium; F41.9 Anxiety disorder, unspecified; F32.A Depression, unspecified; Z89.411 Acquired absence of right great toe; Z79.899 Other long term (current) drug therapy
CPT/HCPCS: 99283